=== PATIENT | male | born 1980 | race Caucasian/White ===

== ENCOUNTER 2022-07-01 11:11 | Emergency (ER) | payer MEDICAID ==
[~2022-07-01] VITALS: Ht 175.3 cm; Wt 90.9 kg
[2022-07-01 11:15] VITALS: BP 140/85
[2022-07-01] MEDS ORDERED: IBUP-1986 PO (12:04)
[2022-07-01] MEDS ORDERED: AMOX500C2 PO (12:04)
== END 2022-07-01 12:17 | disposition home or self-care (01) ==
LOC: ER 11:13
DX: K08.89 Other specified disorders of teeth and supporting structures (principal); Z79.899 Other long term (current) drug therapy
CPT/HCPCS: 99283

== ENCOUNTER 2022-07-23 23:09 | Emergency (ER) | payer MEDICAID ==
[~2022-07-23] VITALS: Ht 175.3 cm; Wt 100.0 kg
[~2022-07-23 23:09] MED LIST: IBUP-1986 PO
[2022-07-23 23:52] LABS: BASOPHILS # (AUTO) 0.1 X10'3 (0-0.2); BASOPHILS % (AUTO) 0.3 % (0-1); EOSINOPHILS % (AUTO) 0 % (0-6); HEMOGLOBIN 13.8 g/dl (14.0-17.9); LYMPHOCYTES # (AUTO) 0.8 X10'3 (1.1-4.8); LYMPHOCYTES % (AUTO) 3.6 % (21-51); MEAN CORPUSCULAR HEMOGLOBIN 29.4 PG (27.0-31.0); MEAN CORPUSCULAR HGB CONC 33.6 g/dL (33.0-36.5); MEAN CORPUSCULAR VOLUME 87.3 FL (78-98); MEAN PLATELET VOLUME 8.1 FL (7.4-10.4); MONOCYTES # (AUTO) 1.1 X10'3 (0-0.9); MONOCYTES % (AUTO) 4.9 % (2-12); NEUTROPHILS # (AUTO) 19.7 X10'3 (1.8-7.7); NEUTROPHILS % (AUTO) 91.2 % (42-75); PLATELET COUNT 358 X10'3 (140-440); RED BLOOD COUNT 4.69 X10'6 (4.70-6.10); RED CELL DISTRIBUTION WIDTH 13.7 % (11.5-14.5); WHITE BLOOD COUNT 21.5 X10'3 (4.5-11.0)
[2022-07-24 00:12] LABS: ALANINE AMINOTRANSFERASE 22 U/L (12-78); ALBUMIN 3.9 G/DL (3.4-5.0); ALBUMIN/GLOBULIN RATIO 1.1 (1.1-1.5); ALKALINE PHOSPHATASE 99 IU/L (46-116); ANION GAP 11 (8-16); ASPARTATE AMINO TRANSFERASE 20 U/L (10-37); BILIRUBIN,TOTAL 0.7 MG/DL (0.1-1.0); BLOOD UREA NITROGEN 11 MG/DL (7-18); BUN/CREATININE RATIO 12.8 (5.4-32.0); CHLORIDE 101 MMOL/L (99-107); CREATININE 0.86 MG/DL (0.60-1.10); GLUCOSE 110 MG/DL (70-104); SODIUM 138 MMOL/L (135-145); TOTAL CARBON DIOXIDE 25.7 MMOL/L (24-32); TOTAL PROTEIN 7.3 G/DL (6.4-8.2); eGFR > 90 ML/MIN
[2022-07-24 00:17] LABS: ACETAMINOPHEN < 2.0 UG/ML (10-30); ETHANOL < 0.010 GM/DL (0.0-0.010); POTASSIUM 2.9 MMOL/L (3.5-5.1)
[2022-07-24] MEDS ORDERED: POTASSIUM BICARB 20meq eff tab 20 MEQ TABLET.EFF PO ONE (00:50)
[2022-07-24 03:20] LABS: PLATELET ESTIMATE NORMAL; TOTAL CELLS COUNTED 100
--- NOTE | 2022-07-24 03:41 | NUR ---
Pt sleeping with even resp, no s/sx of discomfort or distress
--- NOTE | 2022-07-24 06:30 | NUR ---
Pt. woken up and transferred to ER OF bed 24. Pt. cooperative with transfer.
--- NOTE | 2022-07-24 07:00 | NUR ---
Pt. asleep on right side. respirations even and unlabored at 20.
--- NOTE | 2022-07-24 07:18 | NUR ---
TECH INVENTORIED PT 5 BAGS OF BELONGINGS, VALUABLES PLACED IN REGISTRATION SAFE INCLUDING WALLET AND PHONE, ALL OTHER BELONGINGS PLACED IN RM 27 FOR SAFE KEEPING.
--- NOTE | 2022-07-24 08:08 | NUR ---
urine sent to lab for UA and UDS.
--- NOTE | 2022-07-24 08:25 | NUR ---
Pt. awake and eating breakfast at bedside.
[2022-07-24 08:34] LABS: CLARITY,URINE SLIGHTLY CLOUDY (Clear); COLOR,URINE YELLOW (Yellow); GLUCOSE, URINE NEGATIVE (Neg); KETONES,URINE 40 mg/dl (Neg); LEUKOCYTE ESTERASE ,URINE NEGATIVE (Neg); NITRITES, URINE NEGATIVE (Neg); OCCULT BLOOD,URINE NEGATIVE (Neg); PH,URINE 6.5 (4.8-8.0); PROTEIN,URINE NEGATIVE (Neg)
[2022-07-24 08:47] LABS: URINE AMPHETAMINE SCREEN POSITIVE (Neg); URINE BARBITUATE SCREEN NEGATIVE (Neg); URINE BENZODIAZEPINES SCREEN NEGATIVE (Neg); URINE CANNABINOID SCREEN POSITIVE (Neg); URINE COCAINE SCREEN NEGATIVE (Neg); URINE METHADONE SCREEN NEGATIVE (Neg); URINE OPIATE SCREEN NEGATIVE (Neg); URINE PHENCYCLIDINE SCREEN NEGATIVE (Neg)
[2022-07-24 08:53] LABS: UA COLLECTION TYPE NON-SPECIFIED
[2022-07-24 08:56] LABS: BACTERIA,URINE FEW /HPF (Neg); MUCUS STRANDS MANY /LPF (Neg); RBC,URINE NONE SEEN /HPF (0-2); SQUAMOUS EPITHELIAL CELL,UR FEW /LPF (FEW)
--- NOTE | 2022-07-24 10:00 | NUR ---
Pt. asleep in bed on left side. Respiration even and unlabored at 16 BPM.
[2022-07-24] MEDS ORDERED: NO HOME MEDS (11:56)
--- NOTE | 2022-07-24 12:00 | NUR ---
Pt. awake and eating lunch in bed. 1:1 done at bedside. Pt. report SI with plan to jump off a bridge or OD on medications. Pt. reports previous suicide attempt "a long time ago", pt. had attempted to slit his wrists. Pt. denies HI, A/V hallucinations.
[2022-07-24 13:12] LABS: POTASSIUM 3.5 MMOL/L (3.5-5.1)
--- NOTE | 2022-07-24 13:15 | NUR ---
tech faxed pt packet to [facility]
[2022-07-24 18:58] LABS: BASOPHILS # (AUTO) 0.1 X10'3 (0-0.2); BASOPHILS % (AUTO) 0.5 % (0-1); EOSINOPHILS # (AUTO) 0.1 X10'3 (0-0.9); EOSINOPHILS % (AUTO) 0.4 % (0-6); HEMATOCRIT 40.8 % (42.0-52.0); HEMOGLOBIN 13.6 g/dl (14.0-17.9); LYMPHOCYTES # (AUTO) 2.3 X10'3 (1.1-4.8); LYMPHOCYTES % (AUTO) 12.5 % (21-51); MEAN CORPUSCULAR HEMOGLOBIN 29.3 PG (27.0-31.0); MEAN CORPUSCULAR HGB CONC 33.4 g/dL (33.0-36.5); MEAN CORPUSCULAR VOLUME 87.8 FL (78-98); MEAN PLATELET VOLUME 8.3 FL (7.4-10.4); MONOCYTES # (AUTO) 1.1 X10'3 (0-0.9); MONOCYTES % (AUTO) 5.7 % (2-12); NEUTROPHILS # (AUTO) 15.2 X10'3 (1.8-7.7); NEUTROPHILS % (AUTO) 80.9 % (42-75); PLATELET COUNT 326 X10'3 (140-440); RED BLOOD COUNT 4.64 X10'6 (4.70-6.10); RED CELL DISTRIBUTION WIDTH 13.9 % (11.5-14.5); WHITE BLOOD COUNT 18.8 X10'3 (4.5-11.0)
--- NOTE | 2022-07-24 19:13 | NUR ---
The patient appears to be sleeping
--- NOTE | 2022-07-24 19:21 | NUR ---
Labs faxed to [facility] and [facility]
[2022-07-24 20:52] VITALS: BP 123/66
== END 2022-07-24 20:56 ==
LOC: ER 23:10
DX: R45.851 Suicidal ideations (principal); Z20.822 Contact with and (suspected) exposure to COVID-19; F17.200 Nicotine dependence, unspecified, uncomplicated; F12.90 Cannabis use, unspecified, uncomplicated; F15.90 Other stimulant use, unspecified, uncomplicated; F11.90 Opioid use, unspecified, uncomplicated; Z72.89 Other problems related to lifestyle; Z60.2 Problems related to living alone; Z59.00 Homelessness unspecified; Z79.899 Other long term (current) drug therapy
CPT/HCPCS: 36415; 80053; 80305; 80320; 80329; 81001; 84132; 84145; 84443; 85007; 85025; 87088; 87811; 99285

== ENCOUNTER 2023-04-20 22:28 | Inpatient (IN) | payer MEDICAID ==
[~2023-04-20] VITALS: Ht 175.3 cm; Wt 90.2 kg
[~2023-04-20 22:28] MED LIST changes: +NO HOME MEDS
[2023-04-20 22:52] LABS: BILIRUBIN,URINE NEGATIVE (Neg); CLARITY,URINE CLOUDY (Clear); COLOR,URINE YELLOW (Yellow); GLUCOSE, URINE NEGATIVE (Neg); KETONES,URINE NEGATIVE (Neg); LEUKOCYTE ESTERASE ,URINE NEGATIVE (Neg); NITRITES, URINE NEGATIVE (Neg); OCCULT BLOOD,URINE NEGATIVE (Neg); PROTEIN,URINE NEGATIVE (Neg)
[2023-04-20 22:53] LABS: BASOPHILS # (AUTO) 0.1 X10'3 (0-0.2); BASOPHILS % (AUTO) 1.4 % (0-1); EOSINOPHILS # (AUTO) 0.1 X10'3 (0-0.9); EOSINOPHILS % (AUTO) 1.1 % (0-6); HEMATOCRIT 43.4 % (42.0-52.0); HEMOGLOBIN 14.8 g/dl (14.0-17.9); LYMPHOCYTES # (AUTO) 2.8 X10'3 (1.1-4.8); LYMPHOCYTES % (AUTO) 38.7 % (21-51); MEAN CORPUSCULAR HEMOGLOBIN 30.1 PG (27.0-31.0); MEAN CORPUSCULAR HGB CONC 34.1 g/dL (33.0-36.5); MEAN CORPUSCULAR VOLUME 88.4 FL (78-98); MEAN PLATELET VOLUME 9.1 FL (7.4-10.4); MONOCYTES # (AUTO) 0.7 X10'3 (0-0.9); NEUTROPHILS # (AUTO) 3.6 X10'3 (1.8-7.7); NEUTROPHILS % (AUTO) 49.8 % (42-75); PLATELET COUNT 385 X10'3 (140-440); RED BLOOD COUNT 4.91 X10'6 (4.70-6.10); RED CELL DISTRIBUTION WIDTH 13.2 % (11.5-14.5); WHITE BLOOD COUNT 7.2 X10'3 (4.5-11.0)
[2023-04-20 22:56] LABS: UA COLLECTION TYPE CLN CATCH MIDSTREAM
[2023-04-20 22:57] LABS: HYALINE CASTS 0-3 /LPF (NEGATIVE); MUCUS STRANDS MANY /LPF (Neg); SQUAMOUS EPITHELIAL CELL,UR FEW /LPF (FEW)
[2023-04-20 22:58] LABS: AMORPHOUS URATES 2+; BACTERIA,URINE FEW /HPF (Neg); CAL OXALATE CRYSTALS 1+ /HPF (NEGATIVE)
[2023-04-20 22:59] LABS: TRANSITIONAL EPI CELLS,URINE FEW /HPF; WBC,URINE 0-4 /HPF (0-4)
[2023-04-20 23:03] LABS: URINE AMPHETAMINE SCREEN POSITIVE (Neg); URINE BARBITUATE SCREEN NEGATIVE (Neg); URINE BENZODIAZEPINES SCREEN NEGATIVE (Neg); URINE CANNABINOID SCREEN POSITIVE (Neg); URINE COCAINE SCREEN NEGATIVE (Neg); URINE METHADONE SCREEN NEGATIVE (Neg); URINE OPIATE SCREEN NEGATIVE (Neg); URINE PHENCYCLIDINE SCREEN NEGATIVE (Neg)
[2023-04-20 23:05] LABS: ALANINE AMINOTRANSFERASE 27 U/L (12-78); ALBUMIN 3.7 G/DL (3.4-5.0); ALBUMIN/GLOBULIN RATIO 1.2 (1.1-1.5); ALKALINE PHOSPHATASE 79 IU/L (46-116); ANION GAP 9 (8-16); ASPARTATE AMINO TRANSFERASE 28 U/L (10-37); BILIRUBIN,TOTAL 0.4 MG/DL (0.1-1.0); BLOOD UREA NITROGEN 5 MG/DL (7-18); BUN/CREATININE RATIO 5.3 (10.0-20.0); CALCIUM 9.1 MG/DL (8.5-10.1); CHLORIDE 104 MMOL/L (99-107); CREATININE 0.94 MG/DL (0.60-1.10); GLUCOSE 128 MG/DL (70-104); SODIUM 141 MMOL/L (135-145); TOTAL PROTEIN 6.8 G/DL (6.4-8.2); eCRCL 103 ML/MIN; eGFR 88 ML/MIN
[2023-04-20 23:15] LABS: ETHANOL < 10 MG/DL (<10); THYROID STIMULATING HORMONE 1.23 ulU/ml (0.34-4.50)
--- NOTE | 2023-04-20 23:50 | NUR ---
Client arrived at 23:50, in a wheelchair, accompanied by maintenance supervisor mechanical and RN. Client ambulated to restroom and changed into green scrubs. He was cooperative. Mood and affect are depressed. Client reports feelings of hopelessness and worthlessness. Reports plan to "slit wrists". Three prior attempts starting at a "young age". Hx of cutting wrist. Per client "cuts were superficial". He stated [facility] Client did not state why. Belongings were secured by the maintenance supervisor mechanical. Client was given milk and a sandwich. Fell asleep w/o difficulty.
[2023-04-21] MEDS ORDERED: potassium Cl 20 mEq SR tablet PO STA (00:25)
--- NOTE | 2023-04-21 02:05 | NUR ---
Sleeping on right side. Resp even and unlabored.
--- NOTE | 2023-04-21 04:30 | NUR ---
Sleeping on right side. Resp even and unlabored.
--- NOTE | 2023-04-21 06:49 | NUR ---
Patient with snoring respirations. No distress noted on exam. Plan of care ongoing.
--- NOTE | 2023-04-21 08:32 | NUR ---
Rashaun CARTY, evaluating patient. No distress noted on exam. Plan of care ongoing.
[2023-04-21] MEDS: potassium Cl 20 mEq SR tablet PO SCH ×2 (08:54→20:30)
--- NOTE | 2023-04-21 09:12 | NUR ---
Selvin CARTY evaluating patient. Patient eating breakfast during eval. No distress observed. Continue to monitor.
--- NOTE | 2023-04-21 10:13 | NUR ---
Patient was placed on a 5150. Patient is not sleeping. Respirations equal and nonlabored. Continue with patient plan of care.
--- NOTE | 2023-04-21 12:09 | NUR ---
Patient with snoring respirations. Patient's lunch at bedside table. No distress observed. Continue with patient plan of care.
--- NOTE | 2023-04-21 13:42 | NUR ---
Patient laying on his left side. Respirations are nonlabored and quiet. No distress observed during evaluation. Continue with patient plan of care.
--- NOTE | 2023-04-21 15:13 | NUR ---
Patient with snoring respirations. No distress observed during eval.
--- NOTE | 2023-04-21 16:00 | NUR ---
Admission Note: Pt. was admitted to the unit from the Emergency Room in a wheelchair on a 5150 for DTS. Per 5150: You have stated you were going to "[employer] to purchase a razor blade and slit my wrists." Pt. scores as a high risk on the [place] Suicide Risk Assessment, however he is able to contract for safety while on the unit. This was endorsed to Dr. Garcia and Q 15min safety checks were ordered. Pt. reports a history of asthma, depression, Bipolar D/O, and substance abuse. He has an ankle monitor present on his left ankle. Pt. is currently homeless and endorses a very limited support system.
[2023-04-21 16:38] VITALS: BP 123/90; PULSE 76; RESP 16; TEMP 98.1; O2SAT 96
[2023-04-21] MEDS ORDERED: loperamide 2mg capsule PO PRN (16:50)
[2023-04-21] MEDS ORDERED: magnesium hydroxide 30ml (MOM) UD suspension PO PRN (16:50)
[2023-04-21] MEDS ORDERED: acetaminophen 325mg tablet PO PRN (16:50)
[2023-04-21] MEDS ORDERED: mag hydrox/Alum hydrox/simeth 30ml oral suspension PO PRN (16:50)
[2023-04-21 16:52] VITALS: RESP 16; O2SAT 96
[2023-04-21] MEDS ORDERED: NO HOME MEDS (17:32)
[2023-04-21 19:38] VITALS: RESP 16; O2SAT 96
[2023-04-21 19:43] VITALS: BP 123/90; PULSE 76; RESP 16; TEMP 98.1; O2SAT 96
[2023-04-21] MEDS: NICOTINE POLACRILEX 2 MG LOZENGE BC PRN (20:30)
--- NOTE | 2023-04-21 21:08 | NUR ---
Nursing Progress Note: Problem:Pt. was admitted to the unit from the Emergency Room in a wheelchair on a 5150 for DTS. Per 5150: You have stated you were going to "[employer] to purchase a razor blade and slit my wrists." Pt. scores as a high risk on the [place] Suicide Risk Assessment, however he is able to contract for safety while on the unit. This was endorsed to Dr. Garcia and Q 15min safety checks were ordered. Pt. reports a history of asthma, depression, Bipolar D/O, and substance abuse. He has an ankle monitor present on his left ankle. Pt. is currently homeless and endorses a very limited support system. Interventions: Introduced self and established rapport, maintained a safe and supportive environment, provided clear and simple instructions, attempted to orient to reality, monitored anxiety and need for intervention, provided active listening and positive encouragement, and maintained Q 15min safety checks. Response: Pt is in bed napping at change of shift. Pt completed inventory with staff and had snacks. Pt states he has an ankle bracelet for a 290 offense. Pt reports he is here for s/i but currently has no SI thoughts. Pt states he has not been taking any medications. Pt charged his ankle monitor, reports he has no needs at this time. Pt took scheduled med and PRN nicotine lozenge before going to sleep. Plan Pt. continues to require medication adjustments and a safe and supportive environment.
[2023-04-22 07:00] VITALS: RESP 16; O2SAT 97
[2023-04-22 07:36] LABS: THYROID STIMULATING HORMONE 1.18 ulU/ml (0.34-4.50)
[2023-04-22 08:00] VITALS: BP 128/85; PULSE 76; RESP 16; TEMP 98; O2SAT 97
[2023-04-22] MEDS ORDERED: magnesium Cl slow-release 64mg tablet PO PRN (08:40)
[2023-04-22] MEDS ORDERED: potassium Cl 20 mEq SR tablet PO PRN ×2 (08:40)
--- NOTE | 2023-04-22 09:21 | NUR ---
Malnutrition Consult "15 pounds lost past month": Pt admit w/ SI for 2 days RN CONCURRENT REVIEW per EMR. Pt w/ no prior scaled wt hx, no edema/wounds, normal strength, current scaled wt appropriate, and PO 100% first regular diet meal w/ snack per EMR. Pt lacks minimum malnutrition criteria at this time. Addendum: 04/22/23 at [address] Amended: Links added.
[2023-04-22 12:24] LABS: POTASSIUM 3.9 MMOL/L (3.5-5.1)
--- NOTE | 2023-04-22 13:38 | NUR ---
PSYCHOSOCIAL ASSESSMENT Met with Pt. today. Pt is on a 5150 for DTS. Per 5150: You have stated you were going to "[employer] to purchase a razor blade and slit my wrists." Pt. reports a history of asthma, depression, Bipolar D/O, and substance abuse. He has an ankle monitor present on his left ankle. Pt. is currently homeless (for the past 2 years) and endorses a very limited support system. Pt. has a security control room officer, Ngozi. He reported that he works at [employer] and has no other income other than that. He reported he was in [employer] 7-8 months ago. He reported he has been diagnosed with Bipolar D/O. He reported that he has recently relapsed on meth and he continues to use marijuana. He denied using alcohol. Pts family live in [place]. He reported outpt. Mental health services through the [place] office but denies being on medications recently through them. Pt has a hard time finding housing/rehabs as he has 290 status. Pt is interested in the [facility] program when he is medically cleared to discharge. This [facility] will call to see if they have any bed availability at this time. MSE: Pt was laying in his bed, he was calm, compliant and pleasant in his demeanor. His appearance was disheveled and his hygiene was fair. His thought content and process appeared WNL. He was alert and oriented X 4. Nunu Glez LCSW
[2023-04-22] MEDS ORDERED: cloNIDine 0.1 mg tablet PO PRN (14:30)
[2023-04-22] MEDS: ziprasidone 20mg capsule PO SCH ×2 (15:10→20:51)
[2023-04-22] MEDS: sertraline 50mg tablet PO SCH (15:10)
--- NOTE | 2023-04-22 15:15 | NUR ---
Nursing Progress Note: Problem : Pt. was admitted to the unit from the Emergency Room in a wheelchair on a 5150 for DTS. Per 5150: You have stated you were going to "[employer] to purchase a razor blade and slit my wrists." Pt. scores as a high risk on the [place] Suicide Risk Assessment, however he is able to contract for safety while on the unit. This was endorsed to Dr. Garcia and Q 15min safety checks were ordered. Pt. reports a history of asthma, depression, Bipolar D/O, and substance abuse. He has an ankle monitor present on his left ankle. Pt. is currently homeless and endorses a very limited support system. Interventions : Maintained a safe and supportive environment, ensured contract for safety, provided clear and simple instructions, provided active listening and positive encouragement, and maintained Q 15min safety checks. Response : Received pt. sleeping in bed at the beginning of the shift, he was awoken to attend breakfast in the Group Room and afterwards retreated back to bed where he isolated napping intermittently during the shift. 1:1 was completed at bedside, pt. presents as cooperative, fatigued, and is guarded with conversation. He responds minimally to direct questions only. Pt. denies any S/I, however endorses ongoing depression. When questioned further regarding the cause for his depression, pt. states, "My life." Pt. denies any A/V/LANDERS and no delusional statements were made. Pt's order for scheduled potassium replacement was discontinued per SOHAM Whelan and an order for a potassium blood level was obtained. Pt's potassium is currently WNL, and he will receive daily lab draws to monitor potassium and magnesium levels, any needed replacement will be per ordered protocol. Plan : Pt. requires interruption of current crisis, medication adjustments, and a safe and supportive environment.
[2023-04-22 19:00] VITALS: RESP 16; O2SAT 86
[2023-04-22] MEDS ORDERED: albuterol 2.5 MG/3 ML nebule NEB ONE (19:05)
[2023-04-22 20:00] VITALS: BP 127/86; PULSE 72; RESP 16; TEMP 97.5; O2SAT 97
[2023-04-22] MEDS: K and/or MAG REPLACEMENT MC SCH (20:00)
[2023-04-22] MEDS: prazosin 1mg capsule PO PRN (20:51)
[2023-04-22 20:57] VITALS: PULSE 74; RESP 16; O2SAT 96
--- NOTE | 2023-04-23 05:08 | NUR ---
Nursing Progress Note: Lorenzo Problem: Pt. was admitted to the unit from the Emergency Room in a wheelchair on a 5150 for DTS. Per 5150: You have stated you were going to "[employer] to purchase a razor blade and slit my wrists." Pt. scores as a high risk on the [place] Suicide Risk Assessment, however he is able to contract for safety while on the unit. This was endorsed to Dr. Garcia and Q 15min safety checks were ordered. Pt. reports a history of asthma, depression, Bipolar D/O, and substance abuse. He has an ankle monitor present on his left ankle. Pt. is currently homeless and endorses a very limited support system. Interventions: Maintained a safe and supportive environment, administer/educate/monitor medications, ensured contract for safety, provided clear and simple instructions, provided active listening and positive encouragement, and maintained Q 15min safety checks. Response: Patient received in his room, he is sleeping with even and unlabored RR. Pt woke up about 1930. RT here to offer a nebulizer treatment but pt. declined needing one. Lungs have some wheezes but pt. stated this is normal. Pt denies SI/HI/AVH. Pt is fatigued and guarded. Pt is calm and cooperative with assessment. Pt is still paranoid relating to this teletypewriter installer that certain people have hacked his phone and know his 290 status. Pt does appear depressed and giving only minimal answers to questions. Pt is medication compliant tonight. Monitor for safety. Plan: Pt. requires interruption of current crisis, medication adjustments, and a safe and supportive environment.
[2023-04-23 07:00] VITALS: RESP 16; O2SAT 94
[2023-04-23 07:27] LABS: MAGNESIUM 2.2 MG/DL (1.5-2.4); POTASSIUM 3.6 MMOL/L (3.5-5.1)
[2023-04-23 08:00] VITALS: BP 134/88; PULSE 59; RESP 16; TEMP 97.9; O2SAT 94
[2023-04-23] MEDS: lamoTRIgine 25mg tablet PO SCH (08:12)
[2023-04-23] MEDS: ziprasidone 20mg capsule PO SCH ×2 (08:12→21:51)
[2023-04-23] MEDS: sertraline 50mg tablet PO SCH (08:12)
[2023-04-23] MEDS: K and/or MAG REPLACEMENT MC SCH ×2 (08:15→20:00)
[2023-04-23 09:23] VITALS: PULSE 90; RESP 16; O2SAT 97
--- NOTE | 2023-04-23 13:13 | NUR ---
CASE MANAGEMENT Placed a call to [facility], Clotilde reported that she is familiar with Pt. She does not have a bed for him this week but may have one opening up next week. Will follow up as needed. Nunu Glez, TYPING ELEMENT MACHINE OPERATOR
--- NOTE | 2023-04-23 14:20 | NUR ---
Nursing Progress Note: Problem : Pt. was admitted to the unit from the Emergency Room in a wheelchair on a 5150 for DTS. Per 5150: You have stated you were going to "[employer] to purchase a razor blade and slit my wrists." Pt. scores as a high risk on the [place] Suicide Risk Assessment, however he is able to contract for safety while on the unit. This was endorsed to Dr. Garcia and Q 15min safety checks were ordered. Pt. reports a history of asthma, depression, Bipolar D/O, and substance abuse. He has an ankle monitor present on his left ankle. Pt. is currently homeless and endorses a very limited support system. Interventions : Maintained a safe and supportive environment, ensured contract for safety, provided clear and simple instructions, provided active listening and positive encouragement, encouraged participation on the unit, and maintained Q 15min safety checks. Response : Received pt. sleeping in bed at the beginning of the shift, he was awoken to attend breakfast in the Group Room and afterwards retreated back to bed as is his routine. 1:1 was completed at bedside, pt. continues to present as guarded with conversation and makes minimal eye contact. He again responds minimally to direct questions only. Pt. continues to deny any S/I and appears to be minimizing any mental health s/s, he states, "I'm okay." He does endorse some ongoing depression upon questioning by this contract technical writer, but will not elaborate on this. Pt. remains withdrawn from others and naps intermittently throughout the shift. Pt's potassium and magnesium labs were obtained and were WNL, no replacement was required per protocol. Plan : Pt. requires interruption of current crisis, medication adjustments, and a safe and supportive environment.
[2023-04-23 14:30] LABS: HBSAG SCREEN Negative (Negative); HEP B CORE AB, IGM Negative (Negative); HEP B CORE AB, TOT Positive (Negative)
--- NOTE | 2023-04-23 17:41 | NUR ---
Hepatitis B screening: Dr Carrera made aware of pt positive Hep B screening. states we dont normally do anything about this and no isolation needed.
[2023-04-23 19:00] VITALS: RESP 16; O2SAT 100
--- NOTE | 2023-04-23 19:18 | NUR ---
Nursing Progress Note: Problem : Pt. was admitted to the unit from the Emergency Room in a wheelchair on a 5150 for DTS. Per 5150: You have stated you were going to "[employer] to purchase a razor blade and slit my wrists." Pt. scores as a high risk on the [place] Suicide Risk Assessment, however he is able to contract for safety while on the unit. This was endorsed to Dr. Garcia and Q 15min safety checks were ordered. Pt. reports a history of asthma, depression, Bipolar D/O, and substance abuse. He has an ankle monitor present on his left ankle. Pt. is currently homeless and endorses a very limited support system. Interventions : Maintained a safe and supportive environment, ensured contract for safety, provided clear and simple instructions, provided active listening and positive encouragement, encouraged participation on the unit, and maintained Q 15min safety checks. Response: Patient was out of his room for a short time following shift change. He then isolated in his room. 1:1 Interview at bedside. Patient exhibits a flat affect. He tells this data analyst report writer that he feels suicidal, he does not have a plan. He denies hallucinations. The patient states he feels depressed. He does make direct eye contact. He had a normal BM today. Patient is cooperative. The patient states he is trying not to think about things, he wants to sleep. Plan : Pt. requires interruption of current crisis, medication adjustments, and a safe and supportive environment.
[2023-04-23 20:00] VITALS: BP 146/97; PULSE 60; RESP 16; TEMP 97.3; O2SAT 100
[2023-04-23] MEDS: prazosin 1mg capsule PO PRN (21:51)
[2023-04-24 07:30] VITALS: RESP 14; O2SAT 99
[2023-04-24 08:00] VITALS: BP 133/94; PULSE 69; RESP 14; TEMP 98.6; O2SAT 99
[2023-04-24] MEDS: K and/or MAG REPLACEMENT MC SCH ×2 (08:00→20:00)
[2023-04-24] MEDS: sertraline 50mg tablet PO SCH (08:13)
[2023-04-24] MEDS: lamoTRIgine 25mg tablet PO SCH (08:13)
[2023-04-24] MEDS: ziprasidone 20mg capsule PO SCH ×2 (08:14→20:26)
[2023-04-24 11:08] LABS: MAGNESIUM 2.4 MG/DL (1.5-2.4); POTASSIUM 4.3 MMOL/L (3.5-5.1)
[2023-04-24 15:33] VITALS: PULSE 76; RESP 16; O2SAT 99
--- NOTE | 2023-04-24 17:41 | NUR ---
Nursing Progress Note: Problem : Per 5150: You have stated you were going to "[employer] to purchase a razor blade and slit my wrists." Pt. scores as a high risk on the [place] Suicide Risk Assessment, however he is able to contract for safety while on the unit. This was endorsed to Dr. Garcia and Q 15min safety checks were ordered. Pt. reports a history of asthma, depression, Bipolar D/O, and substance abuse. He has an ankle monitor present on his left ankle. Pt. is currently homeless and endorses a very limited support system. Interventions : Maintained a safe and supportive environment, ensured contract for safety, provided clear and simple instructions, provided active listening and positive encouragement, encouraged participation on the unit, and maintained Q 15min safety checks. Response : Pt. asleep in bed at start of shift. Pt. awoke for breakfast and took all medication and went back to his room. 1:1 done at bedside, pt. reports feeling depression and SI without a plan. Pt. gives minimal answers to RNs questions. Pt. denies HI, A/V hallucinations. Pt. is socially withdrawn and isolates to his room most of the day. Pt's potassium and magnesium labs were obtained and were WNL, no replacement was required per protocol. Plan : Pt. requires interruption of current crisis, medication adjustments, and a safe and supportive environment.
[2023-04-24 19:00] VITALS: RESP 16; O2SAT 98
[2023-04-24 20:00] VITALS: BP 131/85; PULSE 75; RESP 16; TEMP 96.8; O2SAT 98
[2023-04-24] MEDS: prazosin 1mg capsule PO PRN (20:26)
--- NOTE | 2023-04-25 05:29 | NUR ---
Nursing Progress Note: Problem: Per 5150: You have stated you were going to "[employer] to purchase a razor blade and slit my wrists." Pt. scores as a high risk on the [place] Suicide Risk Assessment, however he is able to contract for safety while on the unit. This was endorsed to Dr. Garcia and Q 15min safety checks were ordered. Pt. reports a history of asthma, depression, Bipolar D/O, and substance abuse. He has an ankle monitor present on his left ankle. Pt. is currently homeless and endorses a very limited support system. Interventions: Maintained a safe and supportive environment, ensured contract for safety, provided clear and simple instructions, provided active listening and positive encouragement, encouraged participation on the unit, and maintained Q 15min safety checks. Response: Pt received in bed. Pt is awake and participated in 1:1. Pt is calm and cooperative. Pt stated he is very depressed, he has a flat affect. Pt spends most of his time in bed. Little interaction with peers. Pt stated he still has suicidal thoughts but no plan. Pt denies HI/AVH. Im anxious about being discharged and going back out into the world. Pt is homeless. Pt was placed on a 5250 today and is okay with staying here longer. Pt is medication compliant and took Prazosin for his nightmares. Monitor for safety. Plan: Pt. requires interruption of current crisis, medication adjustments, and a safe and supportive environment.
[2023-04-25 07:00] VITALS: RESP 16; O2SAT 97
[2023-04-25] MEDS: ziprasidone 20mg capsule PO SCH ×2 (07:40→20:12)
[2023-04-25] MEDS: sertraline 25mg tablet PO SCH (07:40)
[2023-04-25] MEDS: lamoTRIgine 25mg tablet PO SCH (07:40)
[2023-04-25 08:00] VITALS: BP 125/89; PULSE 70; RESP 16; TEMP 97.3; O2SAT 97
[2023-04-25] MEDS: K and/or MAG REPLACEMENT MC SCH (08:00)
[2023-04-25 09:18] VITALS: PULSE 74; RESP 16; O2SAT 97
--- NOTE | 2023-04-25 11:29 | NUR ---
Initial: Pt admit for SI. Currently on a regular diet and eating well overall, documented with average 84% PO intake since admit meeting 94% estimated energy needs and 100% estimated protein needs. LBM 04/24 per EMR. No nutrition intervention implemented at this time. Will continue to follow and make recommendations as appropriate. Recommendations: 1) Continue regular diet 2) Bowel care PRN 3) Weekly scaled weights Addendum: 04/25/23 at [address] Amended: Links added.
[2023-04-25] MEDS: NICOTINE POLACRILEX 2 MG LOZENGE BC PRN (12:15)
[2023-04-25 14:40] LABS: MAGNESIUM 2.5 MG/DL (1.5-2.4); POTASSIUM 4.7 MMOL/L (3.5-5.1)
--- NOTE | 2023-04-25 16:14 | NUR ---
Nursing Progress Note: Problem : Pt. was admitted to the unit from the Emergency Room in a wheelchair on a 5150 for DTS. Per 5150: You have stated you were going to "[employer] to purchase a razor blade and slit my wrists." Pt. scores as a high risk on the [place] Suicide Risk Assessment, however he is able to contract for safety while on the unit. This was endorsed to Dr. Garcia and Q 15min safety checks were ordered. Pt. reports a history of asthma, depression, Bipolar D/O, and substance abuse. He has an ankle monitor present on his left ankle. Pt. is currently homeless and endorses a very limited support system. Interventions : Maintained a safe and supportive environment, ensured contract for safety, provided clear and simple instructions, provided active listening and positive encouragement, encouraged participation on the unit, and maintained Q 15min safety checks. Response: Nurse received pt. asleep at change of shift, pt. was awoke by this nurse for AM medications. Medications administered with no issues. 1:1 done at bedside. Pt denying SI stating, not today. Pt denies AH/VH but endorses feelings of paranoia and believing people are out to get him. Pt states he feels like his depression is getting better and his mood is pretty good. Pt. requested a nicotine lozenge but was unable to stomach it and spit it out. Pt attended meals in the community room and was seen outside his room on and off throughout the shift. Pt potassium and magnesium lab draws and replacement orders have been discontinued per PA. Plan : Pt. requires interruption of current crisis, medication adjustments, and a safe and supportive environment.
[2023-04-25] MEDS: acetaminophen 325mg tablet PO PRN ×2 (17:03→21:30)
[2023-04-25 19:00] VITALS: RESP 18; O2SAT 98
[2023-04-25] MEDS: prazosin 1mg capsule PO PRN (20:12)
[2023-04-25 20:32] VITALS: BP 145/89; PULSE 56; RESP 18; TEMP 97.2; O2SAT 98
--- NOTE | 2023-04-25 21:50 | NUR ---
Nursing Progress Note: Problem : Pt. was admitted to the unit from the Emergency Room in a wheelchair on a 5150 for DTS. Per 5150: You have stated you were going to "[employer] to purchase a razor blade and slit my wrists." Pt. scores as a high risk on the [place] Suicide Risk Assessment, however he is able to contract for safety while on the unit. This was endorsed to Dr. Garcia and Q 15min safety checks were ordered. Pt. reports a history of asthma, depression, Bipolar D/O, and substance abuse. He has an ankle monitor present on his left ankle. Pt. is currently homeless and endorses a very limited support system. Interventions : Maintained a safe and supportive environment, ensured contract for safety, provided clear and simple instructions, provided active listening and positive encouragement, encouraged participation on the unit, and maintained Q 15min safety checks. Response:This patient is awake and laying in his bed following shift change. 1:1 interview at bedside. This patient is well oriented and cooperative. He speaks in a normal rate, rhythm, and tone. Patient makes direct eye contact. Patient tells this administrative underwriter that he "wonders if my paranoia is real." Patient states he has been out on the unit all day, socializing and watching television. Patient Denies S/I or H/I. This patient was medication compliant and cooperative. Plan : Pt. requires interruption of current crisis, medication adjustments, and a safe and supportive environment.
[2023-04-26 07:00] VITALS: RESP 16; O2SAT 99
[2023-04-26 08:00] VITALS: BP 140/92; PULSE 55; RESP 16; TEMP 97.6; O2SAT 99
[2023-04-26] MEDS: sertraline 25mg tablet PO SCH (08:07)
[2023-04-26] MEDS: lamoTRIgine 25mg tablet PO SCH (08:07)
[2023-04-26] MEDS: ziprasidone 20mg capsule PO SCH ×2 (08:07→20:06)
--- NOTE | 2023-04-26 17:34 | NUR ---
Nursing Progress Note: Abimael Problem : Pt. was admitted to the unit from the Emergency Room in a wheelchair on a 5150 for DTS. Per 5150: You have stated you were going to "[employer] to purchase a razor blade and slit my wrists." Pt. scores as a high risk on the [place] Suicide Risk Assessment, however he is able to contract for safety while on the unit. This was endorsed to Dr. Garcia and Q 15min safety checks were ordered. Pt. reports a history of asthma, depression, Bipolar D/O, and substance abuse. He has an ankle monitor present on his left ankle. Pt. is currently homeless and endorses a very limited support system. Interventions : Maintained a safe and supportive environment, ensured contract for safety, provided clear and simple instructions, provided active listening and positive encouragement, encouraged participation on the unit, and maintained Q 15min safety checks. Response: Received pt asleep. Pt ate meals in the community room and took all medications cooperatively. 1:1 performed at bedside. Pt denies SI/HI and AVH. Pt self-isolated this shift spending the day in his room except when he charged his ankle bracelet in the hallway. Pt pleasant and cooperative with staff. Plan : Pt. requires interruption of current crisis, medication adjustments, and a safe and supportive environment.
[2023-04-26] MEDS: acetaminophen 325mg tablet PO PRN (19:28)
[2023-04-26 19:45] VITALS: BP 115/79; PULSE 66; RESP 14; TEMP 98.1; O2SAT 96
[2023-04-26] MEDS: prazosin 1mg capsule PO PRN (20:05)
--- NOTE | 2023-04-26 23:08 | NUR ---
Nursing Progress Note: Abimael Problem : Pt. was admitted to the unit from the Emergency Room in a wheelchair on a 5150 for DTS. Per 5150: You have stated you were going to "[employer] to purchase a razor blade and slit my wrists." Pt. scores as a high risk on the [place] Suicide Risk Assessment, however he is able to contract for safety while on the unit. This was endorsed to Dr. Garcia and Q 15min safety checks were ordered. Pt. reports a history of asthma, depression, Bipolar D/O, and substance abuse. He has an ankle monitor present on his left ankle. Pt. is currently homeless and endorses a very limited support system. Interventions : Maintained a safe and supportive environment, ensured contract for safety, provided clear and simple instructions, provided active listening and positive encouragement, encouraged participation on the unit, and maintained Q 15min safety checks. Response: Received pt in dining room briefly watching TV with peers. Pt denies MH symptoms and states he is doing OK. Pt had good eye contact during interview. Pt charged his ankle bracelet in the hallway. He is pleasant and cooperative and medication compliant. Pt up for snack time and went to bed shortly after. Pt pleasant and cooperative with staff. Plan : Pt. requires interruption of current crisis, medication adjustments, and a safe and supportive environment.
[2023-04-27] VITALS (7 sets, daily range): BP systolic 121–124; BP diastolic 84–85; PULSE 62–84; RESP 16–19; TEMP 98–98.3; O2SAT 96–98
[2023-04-27] MEDS: lamoTRIgine 25mg tablet PO SCH (07:46)
[2023-04-27] MEDS: sertraline 25mg tablet PO SCH (07:46)
[2023-04-27] MEDS: ziprasidone 20mg capsule PO SCH ×2 (07:48→20:07)
[2023-04-27] MEDS ORDERED: ondansetron 4mg rapidly disintigrating tab PO PRN (11:35)
--- NOTE | 2023-04-27 13:52 | NUR ---
5250 upheld for DTS
--- NOTE | 2023-04-27 16:23 | NUR ---
Nursing Progress Note: Abimael Problem : Pt. was admitted to the unit from the Emergency Room in a wheelchair on a 5150 for DTS. Per 5150: You have stated you were going to "[employer] to purchase a razor blade and slit my wrists." Pt. scores as a high risk on the [place] Suicide Risk Assessment, however he is able to contract for safety while on the unit. This was endorsed to Dr. Garcia and Q 15min safety checks were ordered. Pt. reports a history of asthma, depression, Bipolar D/O, and substance abuse. He has an ankle monitor present on his left ankle. Pt. is currently homeless and endorses a very limited support system. Interventions : Maintained a safe and supportive environment, ensured contract for safety, provided clear and simple instructions, provided active listening and positive encouragement, encouraged participation on the unit, and maintained Q 15min safety checks. Response: Received pt asleep. Pt woke and charged his ankle bracelet in the hallway. Pt states I slept alright. Pt ate meals in the community room and took all medications cooperatively. 1:1 performed at bedside. Pt denies SI/HI and AVH. Pt self-isolated this shift spending most of the day in his room. Pt pleasant and cooperative with staff. Pt was nauseous today gave PRN Zofran with good effect. Pt states he feels like he is getting sick, stated Im tired and getting used to the meds they are giving me. Will continue to monitor, VS within normal limits. Pt observed interacting with peers, walking in the hallway, and watching tv in the community room later in the day. Plan : Pt. requires interruption of current crisis, medication adjustments, and a safe and supportive environment.
[2023-04-27] MEDS: prazosin 1mg capsule PO PRN ×2 (20:07→22:49)
[2023-04-27] MEDS: albuterol 2.5 MG/3 ML nebule NEB PRN (21:23)
--- NOTE | 2023-04-28 01:41 | NUR ---
Nursing Progress Note: Abimael Problem : Pt. was admitted to the unit from the Emergency Room in a wheelchair on a 5150 for DTS. Per 5150: You have stated you were going to "[employer] to purchase a razor blade and slit my wrists." Pt. scores as a high risk on the [place] Suicide Risk Assessment, however he is able to contract for safety while on the unit. This was endorsed to Dr. Garcia and Q 15min safety checks were ordered. Pt. reports a history of asthma, depression, Bipolar D/O, and substance abuse. He has an ankle monitor present on his left ankle. Pt. is currently homeless and endorses a very limited support system. Interventions : Maintained a safe and supportive environment, ensured contract for safety, provided clear and simple instructions, provided active listening and positive encouragement, encouraged participation on the unit, and maintained Q 15min safety checks. Response: Received pt. in the community room at change of shift. Pt. is pleasant and cooperative. Pt. is observed socializing with peers and watching TV. He is medication compliant. Pt. denies SI/HI/VH/AH. Pt. participated in evening snack. Pt. observed laying in bed reading before going to sleep. Plan : Pt. requires interruption of current crisis, medication adjustments, and a safe and supportive environment.
--- NOTE | 2023-04-28 04:45 | NUR ---
POLICY SERVICES REPRESENTATIVE documentation: I have reviewed and agree with all interventions, assessments performed and documented by Drake Vogel.
[2023-04-28 07:18] VITALS: BP 123/80; PULSE 91; RESP 16; TEMP 97.3; O2SAT 97
[2023-04-28] MEDS: sertraline 25mg tablet PO SCH (08:34)
[2023-04-28] MEDS: lamoTRIgine 25mg tablet PO SCH (08:34)
--- NOTE | 2023-04-28 09:01 | NUR ---
CASE MANAGEMENT This Film Librarian spoke with Clotilde at [facility] [place] who reported that she has no availability for Pt at this moment (due to his 290 status she has a more limited selection of beds to offer him) but she did report he continues to be on her waitlist. 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 She reported that he is good about making his appointments and going to classes etc though she did report he missed his last appointment in April with the Psychiatrist at [place]. She gave this Film Librarian Franny Mckeon's (Mental Health consulting manager at [place]) phone number to schedule a follow up appt with his Psychiatrist. Left her a message today. Will continue to follow as needed. Nunu Glez, KIRA
[2023-04-28] MEDS: ziprasidone 20mg capsule PO SCH ×2 (10:04→20:29)
--- NOTE | 2023-04-28 16:04 | NUR ---
Nursing Progress Note: Abimael Problem : Pt. was admitted to the unit from the Emergency Room in a wheelchair on a 5150 for DTS. Per 5150: You have stated you were going to "[employer] to purchase a razor blade and slit my wrists." Pt. scores as a high risk on the [place] Suicide Risk Assessment, however he is able to contract for safety while on the unit. This was endorsed to Dr. Garcia and Q 15min safety checks were ordered. Pt. reports a history of asthma, depression, Bipolar D/O, and substance abuse. He has an ankle monitor present on his left ankle. Pt. is currently homeless and endorses a very limited support system. Interventions : Maintained a safe and supportive environment, ensured contract for safety, provided clear and simple instructions, provided active listening and positive encouragement, encouraged participation on the unit, and maintained Q 15min safety checks. Response: Patient was asleep at change of shift and up for breakfast. RN spoke with patient in his room. Patient denies S/I, H/I, A/H and V/H. Patient does state that he is depressed. Patient is homeless and his [employer] is having difficulty finding patient housing. Patient feels hopeless and helpless. Patient stays in his room and in bed most of the day, laying in bed awake or asleep. Plan : Pt. requires interruption of current crisis, medication adjustments, and a safe and supportive environment.
[2023-04-28 19:00] VITALS: RESP 18; O2SAT 98
[2023-04-28 20:00] VITALS: BP 133/78; PULSE 65; RESP 18; TEMP 98.4; O2SAT 98
[2023-04-28 20:12] VITALS: PULSE 63; RESP 18; O2SAT 95
[2023-04-28 20:18] VITALS: PULSE 68; RESP 18
[2023-04-28] MEDS: prazosin 1mg capsule PO PRN (20:30)
[2023-04-28] MEDS: albuterol 2.5 MG/3 ML nebule NEB PRN (20:35)
--- NOTE | 2023-04-29 01:23 | NUR ---
Nursing Progress Note: Abimael Problem : Pt. was admitted to the unit from the Emergency Room in a wheelchair on a 5150 for DTS. Per 5150: You have stated you were going to "[employer] to purchase a razor blade and slit my wrists." Pt. scores as a high risk on the [place] Suicide Risk Assessment, however he is able to contract for safety while on the unit. This was endorsed to Dr. Garcia and Q 15min safety checks were ordered. Pt. reports a history of asthma, depression, Bipolar D/O, and substance abuse. He has an ankle monitor present on his left ankle. Pt. is currently homeless and endorses a very limited support system. Interventions : Maintained a safe and supportive environment, ensured contract for safety, provided clear and simple instructions, provided active listening and positive encouragement, encouraged participation on the unit, and maintained Q 15min safety checks. Response: Received pt. sitting on bed reading at change of shift. Pt. later observed napping. Pt. awoke for evening snack. Pt. is quiet and keeps to himself most of the time. However, in the community room, pt. socializes with male peer. He denies SI/HI/AH/VH. Pt. is medication compliant. PRNs provided this shift prazosin and clonidine. Pt. continues to have difficulty falling asleep. Plan : Pt. requires interruption of current crisis, medication adjustments, and a safe and supportive environment.
[2023-04-29 07:00] VITALS: RESP 12; O2SAT 97
[2023-04-29 07:49] VITALS: BP 130/88; PULSE 90; RESP 12; TEMP 97.8
[2023-04-29] MEDS: ziprasidone 20mg capsule PO SCH (08:11)
[2023-04-29] MEDS: lamoTRIgine 25mg tablet PO SCH (08:11)
[2023-04-29] MEDS: sertraline 25mg tablet PO SCH (08:11)
[2023-04-29 09:36] VITALS: PULSE 76; RESP 18; O2SAT 98
--- NOTE | 2023-04-29 10:47 | NUR ---
Nursing Progress Note: Problem: Pt. admitted to the unit from the Emergency Room in a wheelchair on a 5150 for DTS. Per 5150: You have stated you were going to "[employer] to purchase a razor blade and slit my wrists." Pt. scores as a high risk on the [place] Suicide Risk Assessment, however he is able to contract for safety while on the unit. This was endorsed to Dr. Garcia and Q 15min safety checks were ordered. Pt. reports a history of asthma, depression, Bipolar D/O, and substance abuse. He has an ankle monitor present on his left ankle. Pt. is currently homeless and endorses a very limited support system. Interventions: Medication administration/education/monitoring; 1:1 assessment with therapeutic communication; encouraged pt to communicate with his provider; maintained a safe and supportive environment; provided positive encouragement, encouraged participation on the unit, and maintained Q 15min safety checks. Response: Patient cooperative with medication pass. In morning assessment he reports regular BM. When asked regarding current mental status he reports, "the paranoia is not going away.' 'It keeps me awake at night." He further states, "the clonidine made me nauseas." Agreed to discuss sleep and medications with his provider. After breakfast he was observed utilizing the exercise bike with a book on his lap. Pt spends time reading in his room or sleeping in between meals. Plan : Pt. requires interruption of current crisis, medication adjustments, and a safe and supportive environment.
[2023-04-29] MEDS ORDERED: LAMO25TA5 PO (15:00)
[2023-04-29] MEDS ORDERED: ALBU18HF2 INH (15:00)
[2023-04-29] MEDS ORDERED: ZIPR60CA7 PO (15:00)
[2023-04-29] MEDS ORDERED: SERT-434 PO (15:00)
[2023-04-29] MEDS ORDERED: PRAZ1CAP5 PO (15:00)
--- NOTE | 2023-04-29 15:45 | NUR ---
Pt discharged to his parole office. Pt reports, "the medications are helping and I feel much better." Pt received his personal belongings. He denies smoking cessation or referral. He agreed to follow up as ordered.
== END 2023-04-29 15:45 | disposition home or self-care (01) | DRG 753 ==
LOC: ER 22:29 → ED HOLD 04-21 13:55 → ADULT MH 04-21 15:49
PROVIDERS: ADMIT Psychiatry & Neurology Psychiatry; ATTEND Psychiatry & Neurology Psychiatry
DX: F31.9 Bipolar disorder, unspecified (principal); R45.851 Suicidal ideations; F22 Delusional disorders; E87.6 Hypokalemia; F15.10 Other stimulant abuse, uncomplicated; F12.10 Cannabis abuse, uncomplicated; F10.10 Alcohol abuse, uncomplicated; Y90.9 Presence of alcohol in blood, level not specified; Z20.822 Contact with and (suspected) exposure to COVID-19; J45.909 Unspecified asthma, uncomplicated; F43.10 Post-traumatic stress disorder, unspecified; Z79.1 Long term (current) use of non-steroidal anti-inflammatories (NSAID); Z59.00 Homelessness unspecified; Z80.41 Family history of malignant neoplasm of ovary; Z72.0 Tobacco use; Z79.899 Other long term (current) drug therapy; Z81.8 Family history of other mental and behavioral disorders
CPT/HCPCS: 36415; 80053; 80305; 80320; 81001; 83036; 83735; 84132; 84443; 85025; 86704; 86705; 87081; 87340; 87811; 94640; 94760; 99285

== ENCOUNTER 2023-05-09 09:44 | Emergency (ER) | payer MEDICAID ==
[~2023-05-09] VITALS: Ht 175.3 cm; Wt 89.2 kg
[~2023-05-09 09:44] MED LIST changes: +ALBU18HF2 INH; -IBUP-1986 PO; +LAMO25TA5 PO; +PRAZ1CAP5 PO; +SERT-434 PO; +ZIPR60CA7 PO
[2023-05-09 09:58] VITALS: BP 138/86; PULSE 92; TEMP 96.4; O2SAT 97
[2023-05-09] MEDS ORDERED: ketorolac trometh. 30mg/ml inj. IM ONE (11:35)
[2023-05-09] MEDS ORDERED: NIRM1TAB PO (11:36)
[2023-05-09 11:42] VITALS: RESP 18
== END 2023-05-09 12:22 | disposition home or self-care (01) ==
LOC: ER 09:45
DX: U07.1 COVID-19 (principal); R09.81 Nasal congestion; R42 Dizziness and giddiness; F12.90 Cannabis use, unspecified, uncomplicated; F15.90 Other stimulant use, unspecified, uncomplicated; F11.90 Opioid use, unspecified, uncomplicated; F17.210 Nicotine dependence, cigarettes, uncomplicated; Z59.00 Homelessness unspecified; Z72.89 Other problems related to lifestyle; Z79.899 Other long term (current) drug therapy
CPT/HCPCS: 36415; 87811; 96372; 99283; J1885

== ENCOUNTER 2023-05-17 10:49 | Emergency (ER) | payer MEDICAID ==
[~2023-05-17] VITALS: Ht 175.3 cm; Wt 95.0 kg
[~2023-05-17 10:49] MED LIST changes: +NIRM1TAB PO
[2023-05-17 10:59] VITALS: BP 134/82; PULSE 82; RESP 18; TEMP 97.8; O2SAT 96
[2023-05-17] MEDS ORDERED: AMOX-117 PO (14:38)
[2023-05-17] MEDS ORDERED: IBUP-1984 PO (14:38)
== END 2023-05-17 14:56 | disposition home or self-care (01) ==
LOC: ER 10:49
DX: K04.7 Periapical abscess without sinus (principal); F17.200 Nicotine dependence, unspecified, uncomplicated; F12.10 Cannabis abuse, uncomplicated; F15.10 Other stimulant abuse, uncomplicated; Z79.899 Other long term (current) drug therapy
CPT/HCPCS: 99283

== ENCOUNTER 2023-05-30 16:45 | Emergency (ER) | payer MEDICAID ==
[~2023-05-30] VITALS: Ht 175.3 cm; Wt 92.2 kg
[2023-05-30 17:30] VITALS: BP 123/80; PULSE 60; RESP 16; TEMP 98; O2SAT 96
[2023-05-30] MEDS ORDERED: SERT-434 PO (18:36)
[2023-05-30] MEDS ORDERED: LAMO25TA94 PO (18:36)
[2023-05-30] MEDS ORDERED: ZIPR60CA2 PO (18:36)
[2023-05-30] MEDS ORDERED: PRAZ1CAP5 PO (18:36)
== END 2023-05-30 18:51 | disposition home or self-care (01) ==
LOC: ER 16:46
DX: F32.A Depression, unspecified (principal); F12.10 Cannabis abuse, uncomplicated; F15.10 Other stimulant abuse, uncomplicated; F11.10 Opioid abuse, uncomplicated; Z59.00 Homelessness unspecified
CPT/HCPCS: 99281

== ENCOUNTER 2023-09-29 19:42 | Emergency (ER) | payer MEDICAID ==
[~2023-09-29] VITALS: Ht 175.3 cm; Wt 76.1 kg
[~2023-09-29 19:42] MED LIST changes: +LAMO25TA94 PO; +ZIPR60CA2 PO
[2023-09-29] MEDS ORDERED: ketorolac trometh inj. 60 MG/2 ML VIAL IM ONE (19:50)
[2023-09-29] MEDS ORDERED: IBUP-1984 PO (21:42)
[2023-09-29 21:55] VITALS: BP 124/80; PULSE 88; RESP 16; TEMP 98; O2SAT 99
== END 2023-09-29 22:00 | disposition home or self-care (01) ==
LOC: ER 19:42
DX: S46.911A Strain of unspecified muscle, fascia and tendon at shoulder and upper arm level, right arm, initial encounter (principal); X58.XXXA Exposure to other specified factors, initial encounter; Y93.89 Activity, other specified; Y92.89 Other specified places as the place of occurrence of the external cause; Y99.8 Other external cause status
CPT/HCPCS: 73030; 96372; 99283; J1885

== ENCOUNTER 2023-09-30 02:16 | Emergency (ER) | payer MEDICAID ==
[~2023-09-30] VITALS: Ht 175.3 cm; Wt 78.2 kg
[~2023-09-30 02:16] MED LIST changes: +IBUP-1984 PO
[2023-09-30 04:46] VITALS: BP 119/89; PULSE 66; TEMP 98.3; O2SAT 97
[2023-09-30 07:19] LABS: BASOPHILS # (AUTO) 0.1 X10'3 (0-0.2); BASOPHILS % (AUTO) 1.1 % (0-1); EOSINOPHILS # (AUTO) 0.1 X10'3 (0-0.9); EOSINOPHILS % (AUTO) 0.8 % (0-6); HEMATOCRIT 44.3 % (42.0-52.0); HEMOGLOBIN 15.1 g/dl (14.0-17.9); LYMPHOCYTES # (AUTO) 2.7 X10'3 (1.1-4.8); LYMPHOCYTES % (AUTO) 35.5 % (21-51); MEAN CORPUSCULAR HEMOGLOBIN 31.1 PG (27.0-31.0); MEAN CORPUSCULAR HGB CONC 34.1 g/dL (33.0-36.5); MEAN PLATELET VOLUME 8.7 FL (7.4-10.4); MONOCYTES # (AUTO) 0.8 X10'3 (0-0.9); MONOCYTES % (AUTO) 10.1 % (2-12); NEUTROPHILS % (AUTO) 52.5 % (42-75); PLATELET COUNT 277 X10'3 (140-440); RED BLOOD COUNT 4.87 X10'6 (4.70-6.10); RED CELL DISTRIBUTION WIDTH 13.7 % (11.5-14.5); WHITE BLOOD COUNT 7.6 X10'3 (4.5-11.0)
[2023-09-30 07:25] LABS: ALANINE AMINOTRANSFERASE 24 U/L (12-78); ALBUMIN 3.7 G/DL (3.4-5.0); ALBUMIN/GLOBULIN RATIO 1.2 (1.1-1.5); ALKALINE PHOSPHATASE 74 IU/L (46-116); ANION GAP 5 (8-16); ASPARTATE AMINO TRANSFERASE 20 U/L (10-37); BILIRUBIN,TOTAL 0.7 MG/DL (0.1-1.0); BLOOD UREA NITROGEN 14 MG/DL (7-18); BUN/CREATININE RATIO 15.2 (10.0-20.0); CALCIUM 9.1 MG/DL (8.5-10.1); CHLORIDE 105 MMOL/L (99-107); CREATININE 0.92 MG/DL (0.60-1.10); ETHANOL < 10 MG/DL (<10); GLUCOSE 93 MG/DL (70-104); POTASSIUM 3.9 MMOL/L (3.5-5.1); SODIUM 141 MMOL/L (135-145); TOTAL CARBON DIOXIDE 31.5 MMOL/L (24-32); TOTAL PROTEIN 6.7 G/DL (6.4-8.2); eCRCL 105 ML/MIN; eGFR 90 ML/MIN
[2023-09-30 08:04] VITALS: RESP 16
[2023-09-30 08:22] LABS: URINE AMPHETAMINE SCREEN POSITIVE (Neg); URINE BARBITUATE SCREEN NEGATIVE (Neg); URINE BENZODIAZEPINES SCREEN NEGATIVE (Neg); URINE CANNABINOID SCREEN POSITIVE (Neg); URINE COCAINE SCREEN NEGATIVE (Neg); URINE METHADONE SCREEN NEGATIVE (Neg); URINE OPIATE SCREEN NEGATIVE (Neg); URINE PHENCYCLIDINE SCREEN NEGATIVE (Neg)
== END 2023-09-30 13:19 | disposition home or self-care (01) ==
LOC: ER 02:17
DX: U07.1 COVID-19 (principal); F12.90 Cannabis use, unspecified, uncomplicated; F15.90 Other stimulant use, unspecified, uncomplicated; F19.90 Other psychoactive substance use, unspecified, uncomplicated; Z59.00 Homelessness unspecified
CPT/HCPCS: 36415; 80053; 80305; 80320; 85025; 87811; 99283

== ENCOUNTER 2023-12-02 15:38 | Inpatient (IN) | payer MEDICAID, OTHER ==
[~2023-12-02] VITALS: Ht 175.3 cm; Wt 70.2 kg
[~2023-12-02 15:38] MED LIST changes: -IBUP-1984 PO
[2023-12-02 16:21] LABS: BILIRUBIN,URINE NEGATIVE (Neg); CLARITY,URINE CLEAR (Clear); COLOR,URINE YELLOW (Yellow); GLUCOSE, URINE NEGATIVE (Neg); KETONES,URINE NEGATIVE (Neg); LEUKOCYTE ESTERASE ,URINE NEGATIVE (Neg); NITRITES, URINE NEGATIVE (Neg); OCCULT BLOOD,URINE TRACE-INTACT (Neg); PH,URINE 6.5 (4.8-8.0); PROTEIN,URINE NEGATIVE (Neg); UROBILINOGEN,URINE 0.2 E.U/dL (0.2-1.0)
[2023-12-02 16:26] LABS: UA COLLECTION TYPE NON-SPECIFIED
[2023-12-02 16:29] LABS: BACTERIA,URINE NONE SEEN /HPF (Neg); RBC,URINE 0-2 /HPF (0-2); SPERM FEW /HPF (NEGATIVE); SQUAMOUS EPITHELIAL CELL,UR NONE SEEN /LPF (FEW); WBC,URINE 0-4 /HPF (0-4)
[2023-12-02 16:32] LABS: URINE AMPHETAMINE SCREEN POSITIVE (Neg); URINE BARBITUATE SCREEN NEGATIVE (Neg); URINE BENZODIAZEPINES SCREEN NEGATIVE (Neg); URINE CANNABINOID SCREEN POSITIVE (Neg); URINE COCAINE SCREEN NEGATIVE (Neg); URINE METHADONE SCREEN NEGATIVE (Neg); URINE OPIATE SCREEN NEGATIVE (Neg); URINE PHENCYCLIDINE SCREEN NEGATIVE (Neg)
[2023-12-02] MEDS: albuterol 2.5 MG/3 ML nebule NEB PRN (19:26)
[2023-12-02 19:29] VITALS: PULSE 84; RESP 18; O2SAT 96
[2023-12-02 19:35] VITALS: PULSE 86; RESP 16
[2023-12-02 19:42] LABS: BASOPHILS # (AUTO) 0.1 X10'3 (0-0.2); BASOPHILS % (AUTO) 0.7 % (0-1); EOSINOPHILS # (AUTO) 0.1 X10'3 (0-0.9); EOSINOPHILS % (AUTO) 1.2 % (0-6); HEMATOCRIT 36.7 % (42.0-52.0); HEMOGLOBIN 12.1 g/dl (14.0-17.9); LYMPHOCYTES # (AUTO) 2.8 X10'3 (1.1-4.8); LYMPHOCYTES % (AUTO) 21.4 % (21-51); MEAN CORPUSCULAR HEMOGLOBIN 30.1 PG (27.0-31.0); MEAN CORPUSCULAR HGB CONC 33.1 g/dL (33.0-36.5); MEAN CORPUSCULAR VOLUME 90.9 FL (78-98); MEAN PLATELET VOLUME 7.9 FL (7.4-10.4); MONOCYTES # (AUTO) 0.7 X10'3 (0-0.9); MONOCYTES % (AUTO) 5.8 % (2-12); NEUTROPHILS # (AUTO) 9.2 X10'3 (1.8-7.7); NEUTROPHILS % (AUTO) 70.9 % (42-75); PLATELET COUNT 342 X10'3 (140-440); RED BLOOD COUNT 4.04 X10'6 (4.70-6.10); RED CELL DISTRIBUTION WIDTH 14.7 % (11.5-14.5); WHITE BLOOD COUNT 12.9 X10'3 (4.5-11.0)
[2023-12-02 19:47] LABS: ACETAMINOPHEN < 2.0 UG/ML (10-30); ALBUMIN 2.6 G/DL (3.4-5.0); ANION GAP 4 (8-16); BLOOD UREA NITROGEN 8 MG/DL (7-18); CALCIUM 8.1 MG/DL (8.5-10.1); CHLORIDE 110 MMOL/L (99-107); CREATININE 0.73 MG/DL (0.60-1.10); ETHANOL < 10 MG/DL (<10); GLUCOSE 117 MG/DL (70-104); POTASSIUM 3.6 MMOL/L (3.5-5.1); SALICYLATE 0.3 MG/DL (4.0-20.0); SODIUM 144 MMOL/L (135-145); TOTAL CARBON DIOXIDE 30.2 MMOL/L (24-32); eCRCL 127 ML/MIN; eGFR > 90 ML/MIN
[2023-12-03 15:49] VITALS: PULSE 78; RESP 16; O2SAT 98
[2023-12-03 19:35] VITALS: BP 128/83; PULSE 74; RESP 17; TEMP 98.2; O2SAT 97
[2023-12-03] MEDS ORDERED: magnesium hydroxide 30ml (MOM) UD suspension PO PRN (20:15)
[2023-12-03] MEDS ORDERED: NICOTINE POLACRILEX 2 MG LOZENGE BC PRN (20:15)
[2023-12-03] MEDS ORDERED: acetaminophen 325mg tablet PO PRN (21:00)
[2023-12-03] MEDS ORDERED: loperamide 2mg capsule PO PRN (21:00)
[2023-12-03] MEDS ORDERED: ALBU18HF2 INH (21:01)
[2023-12-03] MEDS ORDERED: LAMO25TA4 PO (21:03)
[2023-12-03] MEDS ORDERED: PRAZ1CAP5 PO (21:04)
[2023-12-03] MEDS ORDERED: SERT25TA PO (21:05)
[2023-12-03] MEDS ORDERED: ZIPR60CA2 PO (21:06)
[2023-12-03] MEDS ORDERED: albuterol 2.5 MG/3 ML nebule NEB PRN (21:35)
[2023-12-03] MEDS: traZODone 50mg tablet PO SCH (21:46)
[2023-12-03] MEDS: prazosin 1mg capsule PO ONE (21:48)
[2023-12-03] MEDS: ziprasidone 20mg capsule PO ONE (21:51)
[2023-12-03 22:34] VITALS: PULSE 76; RESP 14; O2SAT 97
[2023-12-04 02:34] VITALS: RESP 17; O2SAT 97
[2023-12-04 06:53] VITALS: RESP 17; O2SAT 97
[2023-12-04 07:19] VITALS: BP 120/78; PULSE 70; RESP 16; TEMP 98.3; O2SAT 99
[2023-12-04] MEDS: lamoTRIgine 25mg tablet PO SCH (08:16)
[2023-12-04 09:12] LABS: CHOL/HDL RATIO 2.1 (0.00-4.99); CHOLESTEROL 165 MG/DL (0-200); HDL CHOLESTEROL 78 MG/DL (35-60); LDL CHOLESTEROL 68 MG/DL (50-100); TRIGLYCERIDES 50 MG/DL (20-135)
[2023-12-04] MEDS: ziprasidone 20mg capsule PO SCH (09:14)
[2023-12-04 10:13] LABS: HEMOGLOBIN A1C 5.7 % (4.5-6.2)
[2023-12-04 19:00] VITALS: RESP 18; O2SAT 98
[2023-12-04] MEDS: prazosin 1mg capsule PO SCH (20:44)
[2023-12-05 06:40] VITALS: RESP 17; O2SAT 97
[2023-12-05 07:45] LABS: BASOPHILS # (AUTO) 0.1 X10'3 (0-0.2); EOSINOPHILS # (AUTO) 0.1 X10'3 (0-0.9); EOSINOPHILS % (AUTO) 1.5 % (0-6); HEMATOCRIT 44.5 % (42.0-52.0); HEMOGLOBIN 15.2 g/dl (14.0-17.9); LYMPHOCYTES % (AUTO) 30.8 % (21-51); MEAN CORPUSCULAR HEMOGLOBIN 31.1 PG (27.0-31.0); MEAN CORPUSCULAR HGB CONC 34.1 g/dL (33.0-36.5); MEAN CORPUSCULAR VOLUME 91.2 FL (78-98); MONOCYTES # (AUTO) 0.5 X10'3 (0-0.9); MONOCYTES % (AUTO) 7.1 % (2-12); NEUTROPHILS # (AUTO) 3.8 X10'3 (1.8-7.7); NEUTROPHILS % (AUTO) 59.6 % (42-75); PLATELET COUNT 342 X10'3 (140-440); RED BLOOD COUNT 4.88 X10'6 (4.70-6.10); RED CELL DISTRIBUTION WIDTH 14.4 % (11.5-14.5); WHITE BLOOD COUNT 6.5 X10'3 (4.5-11.0)
[2023-12-05] MEDS: sertraline 50mg tablet PO SCH (08:17)
[2023-12-05 19:00] VITALS: RESP 18; O2SAT 97
[2023-12-05] MEDS: acetaminophen 325mg tablet PO PRN (21:29)
[2023-12-06 07:00] VITALS: RESP 18; O2SAT 99
[2023-12-06 19:00] VITALS: RESP 16; O2SAT 96
[2023-12-07 07:00] VITALS: RESP 18; O2SAT 100
[2023-12-07 10:23] VITALS: PULSE 78; RESP 16; O2SAT 97
[2023-12-07 19:00] VITALS: RESP 18; O2SAT 97
[2023-12-07 19:16] VITALS: BP 118/86; PULSE 83; RESP 18; TEMP 98.4; O2SAT 97
[2023-12-07 20:29] VITALS: PULSE 90; RESP 20; O2SAT 98
[2023-12-08 07:00] VITALS: RESP 16; O2SAT 100
[2023-12-08 07:30] VITALS: BP 115/81; PULSE 71; RESP 16; TEMP 98.3; O2SAT 100
[2023-12-08] MEDS: sertraline 50mg tablet PO SCH (07:42)
[2023-12-08] MEDS ORDERED: SERT-434 PO (14:57)
[2023-12-08] MEDS ORDERED: NICO-907 BC (14:57)
[2023-12-08] MEDS ORDERED: ALBU18HF2 INH (14:57)
[2023-12-08] MEDS ORDERED: PRAZ1CAP5 PO (14:57)
[2023-12-08] MEDS ORDERED: TRAZ-251 PO (14:57)
[2023-12-08] MEDS ORDERED: LAMO25TA4 PO (14:57)
== END 2023-12-08 15:51 | DRG 751 ==
LOC: ER 15:38 → ADULT MH 12-03 20:06
PROVIDERS: ADMIT Psychiatry & Neurology Psychiatry; ATTEND Psychiatry & Neurology Psychiatry
PROC: GZHZZZZ Group Psychotherapy (ICD-10-PCS; principal; 2023-12-07)
DX: F33.9 Major depressive disorder, recurrent, unspecified (principal); R45.851 Suicidal ideations; F41.9 Anxiety disorder, unspecified; F15.10 Other stimulant abuse, uncomplicated; F17.210 Nicotine dependence, cigarettes, uncomplicated; Z20.822 Contact with and (suspected) exposure to COVID-19; F11.90 Opioid use, unspecified, uncomplicated; Z79.899 Other long term (current) drug therapy; Z59.00 Homelessness unspecified; Z56.0 Unemployment, unspecified; Z91.018 Allergy to other foods
CPT/HCPCS: 36415; 71045; 80048; 80061; 80305; 80320; 80329; 81001; 83036; 85025; 87811; 94640; 94760; 99285

== ENCOUNTER 2023-12-30 03:52 | Inpatient (IN) | payer MEDICAID ==
[~2023-12-30] VITALS: Ht 175.3 cm; Wt 72.8 kg
[~2023-12-30 03:52] MED LIST changes: +LAMO25TA4 PO; -LAMO25TA5 PO; -LAMO25TA94 PO; +NICO-907 BC; -NIRM1TAB PO; -NO HOME MEDS; +TRAZ-251 PO; -ZIPR60CA2 PO; -ZIPR60CA7 PO
[2023-12-30] MEDS ORDERED: NO HOME MEDS (05:32)
[2023-12-30 05:47] LABS: ALBUMIN 3.8 G/DL (3.4-5.0); ANION GAP 9 (8-16); BLOOD UREA NITROGEN 18 MG/DL (7-18); BUN/CREATININE RATIO 18.9 (10.0-20.0); CALCIUM 8.8 MG/DL (8.5-10.1); CHLORIDE 103 MMOL/L (99-107); CREATININE 0.95 MG/DL (0.60-1.10); ETHANOL < 10 MG/DL (<10); GLUCOSE 91 MG/DL (70-104); SODIUM 141 MMOL/L (135-145); TOTAL CARBON DIOXIDE 29.1 MMOL/L (24-32); eCRCL 100 ML/MIN; eGFR 87 ML/MIN
[2023-12-30 05:50] LABS: URINE AMPHETAMINE SCREEN POSITIVE (Neg); URINE BARBITUATE SCREEN NEGATIVE (Neg); URINE BENZODIAZEPINES SCREEN NEGATIVE (Neg); URINE CANNABINOID SCREEN POSITIVE (Neg); URINE COCAINE SCREEN NEGATIVE (Neg); URINE METHADONE SCREEN NEGATIVE (Neg); URINE OPIATE SCREEN NEGATIVE (Neg); URINE PHENCYCLIDINE SCREEN NEGATIVE (Neg)
[2023-12-30 05:51] LABS: EOSINOPHILS # (AUTO) 0.1 X10'3 (0-0.9); MEAN CORPUSCULAR VOLUME 90.3 FL (78-98); MONOCYTES # (AUTO) 0.9 X10'3 (0-0.9)
[2023-12-30 05:52] LABS: BASOPHILS # (AUTO) 0.1 X10'3 (0-0.2); BASOPHILS % (AUTO) 1.2 % (0-1); EOSINOPHILS % (AUTO) 0.9 % (0-6); HEMATOCRIT 42.3 % (42.0-52.0); HEMOGLOBIN 14.6 g/dl (14.0-17.9); LYMPHOCYTES # (AUTO) 2.7 X10'3 (1.1-4.8); MEAN CORPUSCULAR HEMOGLOBIN 31.2 PG (27.0-31.0); MEAN CORPUSCULAR HGB CONC 34.5 g/dL (33.0-36.5); MEAN PLATELET VOLUME 8.3 FL (7.4-10.4); MONOCYTES % (AUTO) 7.9 % (2-12); PLATELET COUNT 336 X10'3 (140-440); RED BLOOD COUNT 4.68 X10'6 (4.70-6.10); RED CELL DISTRIBUTION WIDTH 14.2 % (11.5-14.5); WHITE BLOOD COUNT 10.8 X10'3 (4.5-11.0)
[2023-12-30] MEDS ORDERED: magnesium hydroxide 30ml (MOM) UD suspension PO PRN (15:55)
[2023-12-30] MEDS ORDERED: loperamide 2mg capsule PO PRN (15:55)
[2023-12-30] MEDS ORDERED: mag hydrox/Alum hydrox/simeth 30ml oral suspension PO PRN (15:55)
[2023-12-30 16:41] VITALS: RESP 16; O2SAT 98
[2023-12-30 17:07] VITALS: BP 111/75; PULSE 67; RESP 16; TEMP 97.2; O2SAT 98
[2023-12-30 18:50] VITALS: RESP 16; RESP 17; O2SAT 98; O2SAT 99
[2023-12-30 19:15] VITALS: BP 94/62; PULSE 78; RESP 17; TEMP 98.2; O2SAT 99
[2023-12-31 07:00] VITALS: RESP 14; O2SAT 100
[2023-12-31 07:30] VITALS: BP 107/71; PULSE 65; RESP 14; TEMP 97; O2SAT 100
[2023-12-31] MEDS: nicotine 21mg patch - 24 hr TD SCH (08:04)
[2023-12-31 11:15] LABS: CHOL/HDL RATIO 1.9 (0.00-4.99); CHOLESTEROL 121 MG/DL (0-200); HDL CHOLESTEROL 63 MG/DL (35-60); LDL CHOLESTEROL 48 MG/DL (50-100); TRIGLYCERIDES 65 MG/DL (20-135)
[2023-12-31] MEDS: acetaminophen 325mg tablet PO PRN (18:53)
[2023-12-31 19:00] VITALS: RESP 16; O2SAT 98
[2023-12-31 20:00] VITALS: BP 114/81; PULSE 96; RESP 16; TEMP 97.9; O2SAT 98
[2023-12-31] MEDS: prazosin 1mg capsule PO SCH (20:42)
[2023-12-31] MEDS: traZODone 50mg tablet PO PRN (20:46)
[2024-01-01 07:00] VITALS: RESP 18; O2SAT 100
[2024-01-01] MEDS: sertraline 50mg tablet PO SCH (07:29)
[2024-01-01 07:30] VITALS: BP 108/64; PULSE 85; RESP 18; TEMP 97.7; O2SAT 100
[2024-01-01] MEDS: NICOTINE POLACRILEX 2 MG LOZENGE BC PRN (18:41)
[2024-01-01 19:30] VITALS: BP 120/82; PULSE 91; RESP 16; TEMP 98.4; O2SAT 96
[2024-01-02 08:00] VITALS: BP 109/67; PULSE 82; RESP 16; TEMP 97.8; O2SAT 100
[2024-01-02 19:30] VITALS: BP 123/75; PULSE 83; RESP 16; TEMP 98.4; O2SAT 98
[2024-01-03 07:30] VITALS: BP 111/74; PULSE 81; RESP 16; TEMP 96.7; O2SAT 98
[2024-01-03 19:00] VITALS: BP 135/90; PULSE 90; RESP 16; TEMP 98.1; O2SAT 98
[2024-01-03] MEDS: acetaminophen 325mg tablet PO PRN (21:03)
[2024-01-04 07:00] VITALS: RESP 14; O2SAT 98
[2024-01-04 07:30] VITALS: BP 113/60; PULSE 74; RESP 14; TEMP 97.5; O2SAT 98
[2024-01-04 19:31] VITALS: BP 111/75; PULSE 78; RESP 16; TEMP 98; O2SAT 97
[2024-01-05 07:30] VITALS: RESP 12; O2SAT 99
[2024-01-05 08:00] VITALS: BP 106/60; PULSE 80; RESP 12; TEMP 98.1; O2SAT 99
[2024-01-05 20:09] VITALS: BP 121/71; PULSE 79; RESP 12; TEMP 98.9; O2SAT 98
[2024-01-06 07:16] VITALS: RESP 16; O2SAT 98
[2024-01-06 08:00] VITALS: BP 94/67; PULSE 75; RESP 16; TEMP 97.7; O2SAT 98
[2024-01-06 19:47] VITALS: RESP 18; O2SAT 99
[2024-01-06 20:46] VITALS: BP 121/88; PULSE 115; RESP 18; TEMP 97.8; O2SAT 99
[2024-01-06] MEDS: clotrimazole topical cream 15gm tube TP SCH (21:01)
[2024-01-07 07:00] VITALS: RESP 16; O2SAT 98
[2024-01-07 08:00] VITALS: BP 109/54; PULSE 68; RESP 16; TEMP 97.3; O2SAT 98
[2024-01-07 19:00] VITALS: RESP 16; O2SAT 97
[2024-01-07 20:00] VITALS: BP 116/77; PULSE 84; RESP 16; TEMP 97.7; O2SAT 97
[2024-01-08 08:00] VITALS: BP 113/65; PULSE 87; RESP 12; TEMP 97.5; O2SAT 96
[2024-01-08 08:12] VITALS: RESP 12; O2SAT 96
[2024-01-08] MEDS ORDERED: NICO-687 TD (12:00)
[2024-01-08] MEDS ORDERED: CLOT15CR35 TP (12:00)
[2024-01-08] MEDS ORDERED: TRAZ-251 PO (12:00)
== END 2024-01-08 14:13 | disposition home or self-care (01) | DRG 751 ==
LOC: ER 03:53 → ED HOLD 14:26 → ADULT MH 15:36
PROVIDERS: ADMIT Psychiatry & Neurology Psychiatry; ATTEND Psychiatry & Neurology Psychiatry
PROC: GZHZZZZ Group Psychotherapy (ICD-10-PCS; principal; 2024-01-01)
PROC: GZ51ZZZ Individual Psychotherapy, Behavioral (ICD-10-PCS; 2024-01-01)
DX: F33.2 Major depressive disorder, recurrent severe without psychotic features (principal); R45.851 Suicidal ideations; F17.210 Nicotine dependence, cigarettes, uncomplicated; F43.12 Post-traumatic stress disorder, chronic; J45.909 Unspecified asthma, uncomplicated; T43.96XA Underdosing of unspecified psychotropic drug, initial encounter; Z56.0 Unemployment, unspecified; Z80.41 Family history of malignant neoplasm of ovary; Z91.018 Allergy to other foods; Z59.00 Homelessness unspecified; Z79.899 Other long term (current) drug therapy; Z91.51 Personal history of suicidal behavior; Z65.3 Problems related to other legal circumstances; Y92.89 Other specified places as the place of occurrence of the external cause
CPT/HCPCS: 36415; 80048; 80061; 80305; 80320; 85025; 87081; 99285

== ENCOUNTER 2024-01-21 00:37 | Emergency (ER) | payer MEDICAID ==
[~2024-01-21 00:37] MED LIST changes: -ALBU18HF2 INH; +CLOT15CR35 TP; -LAMO25TA4 PO; +NICO-687 TD; +NO HOME MEDS; -PRAZ1CAP5 PO
== END 2024-01-21 01:29 | disposition left against medical advice (07) ==
LOC: ER 00:37
DX: M25.511 Pain in right shoulder (principal); Z53.21 Procedure and treatment not carried out due to patient leaving prior to being seen by health care provider

== ENCOUNTER 2024-01-22 01:39 | Emergency (ER) | payer MEDICAID ==
[~2024-01-22] VITALS: Ht 175.3 cm; Wt 75.0 kg
[2024-01-22 02:02] VITALS: BP 119/77; PULSE 96; RESP 18; TEMP 98; O2SAT 97
== END 2024-01-22 04:56 | disposition left against medical advice (07) ==
LOC: ER 01:39
DX: R44.2 Other hallucinations (principal); Z53.21 Procedure and treatment not carried out due to patient leaving prior to being seen by health care provider

== ENCOUNTER 2024-04-11 15:16 | Emergency (ER) | payer MEDICAID ==
[~2024-04-11] VITALS: Ht 175.3 cm; Wt 81.3 kg
[2024-04-11 15:46] LABS: BASOPHILS # (AUTO) 0.1 X10'3 (0-0.2); BASOPHILS % (AUTO) 1.3 % (0-1); EOSINOPHILS # (AUTO) 0.1 X10'3 (0-0.9); HEMOGLOBIN 12.8 g/dl (14.0-17.9); LYMPHOCYTES # (AUTO) 1.6 X10'3 (1.1-4.8); LYMPHOCYTES % (AUTO) 21.5 % (21-51); MEAN CORPUSCULAR HGB CONC 33.7 g/dL (33.0-36.5); MEAN PLATELET VOLUME 8.2 FL (7.4-10.4); MONOCYTES # (AUTO) 0.5 X10'3 (0-0.9); MONOCYTES % (AUTO) 6.9 % (2-12); NEUTROPHILS # (AUTO) 5.3 X10'3 (1.8-7.7); NEUTROPHILS % (AUTO) 69.3 % (42-75); PLATELET COUNT 280 X10'3 (140-440); RED BLOOD COUNT 4.13 X10'6 (4.70-6.10); RED CELL DISTRIBUTION WIDTH 13.4 % (11.5-14.5); WHITE BLOOD COUNT 7.6 X10'3 (4.5-11.0)
[2024-04-11 15:56] LABS: ALBUMIN 3.4 G/DL (3.4-5.0); ANION GAP 3 (8-16); BLOOD UREA NITROGEN 10 MG/DL (7-18); BUN/CREATININE RATIO 11.8 (10.0-20.0); CALCIUM 8.6 MG/DL (8.5-10.1); CHLORIDE 107 MMOL/L (99-107); CREATININE 0.85 MG/DL (0.60-1.10); GLUCOSE 104 MG/DL (70-104); POTASSIUM 3.8 MMOL/L (3.5-5.1); SODIUM 141 MMOL/L (135-145); TOTAL CARBON DIOXIDE 30.9 MMOL/L (24-32); eCRCL 113 ML/MIN; eGFR > 90 ML/MIN
[2024-04-11 16:00] LABS: ETHANOL < 10 MG/DL (<10)
[2024-04-11 16:49] LABS: URINE AMPHETAMINE SCREEN POSITIVE (Neg); URINE BARBITUATE SCREEN NEGATIVE (Neg); URINE BENZODIAZEPINES SCREEN NEGATIVE (Neg); URINE CANNABINOID SCREEN POSITIVE (Neg); URINE COCAINE SCREEN NEGATIVE (Neg); URINE METHADONE SCREEN NEGATIVE (Neg); URINE OPIATE SCREEN NEGATIVE (Neg); URINE PHENCYCLIDINE SCREEN NEGATIVE (Neg)
[2024-04-12 06:16] VITALS: BP 106/73; PULSE 56; RESP 18; TEMP 96.7; O2SAT 99
[2024-04-12 11:12] LABS: BILIRUBIN,URINE NEGATIVE (Neg); CLARITY,URINE TURBID (Clear); COLOR,URINE STRAW (Yellow); GLUCOSE, URINE NEGATIVE (Neg); KETONES,URINE NEGATIVE (Neg); LEUKOCYTE ESTERASE ,URINE NEGATIVE (Neg); NITRITES, URINE NEGATIVE (Neg); OCCULT BLOOD,URINE NEGATIVE (Neg); PROTEIN,URINE NEGATIVE (Neg); UROBILINOGEN,URINE 0.2 E.U/dL (0.2-1.0)
[2024-04-12 11:27] LABS: UA COLLECTION TYPE FOLEY CATH
[2024-04-12 11:30] LABS: AMORPHOUS URATES 4+
[2024-04-12 11:31] LABS: BACTERIA,URINE FEW /HPF (Neg); CAL OXALATE CRYSTALS 4+ /HPF (NEGATIVE); SQUAMOUS EPITHELIAL CELL,UR FEW /LPF (FEW)
[2024-04-12 11:32] LABS: COARSE GRANULAR CAST 0-3 /LPF (NEGATIVE); RBC,URINE 0-2 /HPF (0-2); WBC,URINE 0-4 /HPF (0-4)
[2024-04-12 14:35] LABS: THYROID STIMULATING HORMONE 1.88 ulU/ml (0.34-4.50)
== END 2024-04-12 14:15 | disposition home or self-care (01) ==
LOC: ER 15:17
DX: R45.851 Suicidal ideations (principal); Z20.822 Contact with and (suspected) exposure to COVID-19; F12.90 Cannabis use, unspecified, uncomplicated; F15.90 Other stimulant use, unspecified, uncomplicated; F11.90 Opioid use, unspecified, uncomplicated; Z60.2 Problems related to living alone; Z59.00 Homelessness unspecified; Z79.899 Other long term (current) drug therapy
CPT/HCPCS: 36415; 80048; 80305; 80320; 81001; 84443; 85025; 87088; 87811; 99285

== ENCOUNTER 2024-09-12 03:24 | Inpatient (IN) | payer MEDICAID ==
[~2024-09-12] VITALS: Ht 175.3 cm; Wt 82.5 kg
[~2024-09-12 03:24] MED LIST changes: -CLOT15CR35 TP; -NICO-687 TD; -NICO-907 BC; -SERT-434 PO; -TRAZ-251 PO
[2024-09-12 04:27] LABS: BASOPHILS # (AUTO) 0.1 X10'3 (0-0.2); BASOPHILS % (AUTO) 1.4 % (0-1); EOSINOPHILS # (AUTO) 0.1 X10'3 (0-0.9); EOSINOPHILS % (AUTO) 1.6 % (0-6); HEMOGLOBIN 13.6 g/dl (14.0-17.9); LYMPHOCYTES # (AUTO) 1.9 X10'3 (1.1-4.8); LYMPHOCYTES % (AUTO) 29.3 % (21-51); MEAN CORPUSCULAR HEMOGLOBIN 30.8 PG (27.0-31.0); MEAN CORPUSCULAR HGB CONC 34.1 g/dL (33.0-36.5); MEAN CORPUSCULAR VOLUME 90.2 FL (78-98); MEAN PLATELET VOLUME 8.2 FL (7.4-10.4); MONOCYTES # (AUTO) 0.6 X10'3 (0-0.9); NEUTROPHILS # (AUTO) 3.8 X10'3 (1.8-7.7); NEUTROPHILS % (AUTO) 58.7 % (42-75); PLATELET COUNT 302 X10'3 (140-440); RED BLOOD COUNT 4.43 X10'6 (4.70-6.10); RED CELL DISTRIBUTION WIDTH 13.5 % (11.5-14.5); WHITE BLOOD COUNT 6.5 X10'3 (4.5-11.0)
[2024-09-12 04:51] LABS: ALBUMIN 3.6 G/DL (3.4-5.0); ANION GAP 7 (8-16); BLOOD UREA NITROGEN 12 MG/DL (7-18); BUN/CREATININE RATIO 16.9 (10.0-20.0); CALCIUM 8.7 MG/DL (8.5-10.1); CHLORIDE 106 MMOL/L (99-107); CREATININE 0.71 MG/DL (0.60-1.10); GLUCOSE 92 MG/DL (70-104); POTASSIUM 3.4 MMOL/L (3.5-5.1); SODIUM 142 MMOL/L (135-145); THYROID STIMULATING HORMONE 1.53 ulU/ml (0.34-4.50); TOTAL CARBON DIOXIDE 28.8 MMOL/L (24-32); eCRCL 134 ML/MIN; eGFR > 90 ML/MIN
[2024-09-12 05:06] LABS: ETHANOL < 10 MG/DL (<10)
[2024-09-12 08:54] LABS: BILIRUBIN,URINE NEGATIVE (Neg); CLARITY,URINE CLEAR (Clear); COLOR,URINE YELLOW (Yellow); GLUCOSE, URINE NEGATIVE (Neg); KETONES,URINE TRACE mg/dl (Neg); LEUKOCYTE ESTERASE ,URINE NEGATIVE (Neg); NITRITES, URINE NEGATIVE (Neg); OCCULT BLOOD,URINE NEGATIVE (Neg); PH,URINE 6.5 (4.8-8.0); PROTEIN,URINE NEGATIVE (Neg)
[2024-09-12 08:59] LABS: UA COLLECTION TYPE CLN CATCH MIDSTREAM
[2024-09-12 09:11] LABS: URINE AMPHETAMINE SCREEN POSITIVE (Neg); URINE BARBITUATE SCREEN NEGATIVE (Neg); URINE BENZODIAZEPINES SCREEN NEGATIVE (Neg); URINE CANNABINOID SCREEN POSITIVE (Neg); URINE COCAINE SCREEN NEGATIVE (Neg); URINE METHADONE SCREEN NEGATIVE (Neg); URINE OPIATE SCREEN NEGATIVE (Neg); URINE PHENCYCLIDINE SCREEN NEGATIVE (Neg)
[2024-09-12 15:32] VITALS: BP 115/74; PULSE 90; RESP 16; TEMP 98.2; O2SAT 98
[2024-09-12] MEDS ORDERED: acetaminophen 325mg tablet PO PRN ×2 (16:25)
[2024-09-12] MEDS ORDERED: mag hydrox/Alum hydrox/simeth 30ml oral suspension PO PRN (16:25)
[2024-09-12] MEDS ORDERED: loperamide 2mg capsule PO PRN (16:25)
[2024-09-12] MEDS ORDERED: magnesium hydroxide 30ml (MOM) UD suspension PO PRN (16:25)
[2024-09-12 19:00] VITALS: RESP 14; O2SAT 100
[2024-09-12 20:00] VITALS: BP 95/56; PULSE 72; RESP 14; TEMP 97.6; O2SAT 100
[2024-09-12] MEDS ORDERED: potassium Cl 40MEQ/1/2NS 520ml 520 ML IV PRN ×2 (20:00→23:35)
[2024-09-12] MEDS ORDERED: potassium Cl 20 mEq SR tablet PO PRN ×3 (20:00→23:35)
[2024-09-12] MEDS ORDERED: magnesium sulf-water 2g/50mL 50 ML IV PRN ×2 (20:00→23:35)
[2024-09-12] MEDS: K and/or MAG REPLACEMENT MC SCH (20:00)
[2024-09-12] MEDS ORDERED: magnesium Cl slow-release 64mg tablet PO PRN ×2 (20:00→23:35)
[2024-09-12] MEDS ORDERED: magnesium sulf-water 4G/100mL 100 ML IV PRN ×2 (20:00→23:35)
[2024-09-12] MEDS: potassium Cl 20 mEq SR tablet PO PRN (20:41)
[2024-09-13 07:15] VITALS: BP 104/62; PULSE 56; RESP 12; TEMP 97.8; O2SAT 98
[2024-09-13] MEDS: nicotine 14mg patch - 24hr TD SCH (09:13)
[2024-09-13 09:18] VITALS: RESP 14; O2SAT 96
[2024-09-13] MEDS: NICOTINE POLACRILEX 2 MG LOZENGE BC PRN (09:24)
[2024-09-13 11:23] LABS: MAGNESIUM 2.5 MG/DL (1.5-2.4); POTASSIUM 3.8 MMOL/L (3.5-5.1); THYROID STIMULATING HORMONE 0.99 ulU/ml (0.34-4.50)
[2024-09-13] MEDS: K and/or MAG REPLACEMENT MC SCH (11:33)
[2024-09-13 13:02] LABS: HEMOGLOBIN A1C 5.4 % (4.5-6.2)
[2024-09-13 19:00] VITALS: RESP 16; O2SAT 98
[2024-09-13 20:00] VITALS: BP 116/79; PULSE 87; RESP 16; TEMP 97.9; O2SAT 98
[2024-09-13] MEDS ORDERED: buPROPion 100mg tablet PO SCH (20:00)
[2024-09-13] MEDS: olanzapine 10mg tablet PO SCH (20:16)
[2024-09-14 01:23] VITALS: BP 116/79; PULSE 87; RESP 16; TEMP 97.9; O2SAT 98
[2024-09-14 07:43] VITALS: BP 96/63; PULSE 62; RESP 16; TEMP 97.8; O2SAT 100
[2024-09-14 07:49] VITALS: RESP 16; O2SAT 100
[2024-09-14 07:52] LABS: BASOPHILS # (AUTO) 0.1 X10'3 (0-0.2); BASOPHILS % (AUTO) 1.9 % (0-1); EOSINOPHILS # (AUTO) 0.1 X10'3 (0-0.9); EOSINOPHILS % (AUTO) 2.3 % (0-6); HEMATOCRIT 40.2 % (42.0-52.0); HEMOGLOBIN 13.8 g/dl (14.0-17.9); LYMPHOCYTES # (AUTO) 2.2 X10'3 (1.1-4.8); LYMPHOCYTES % (AUTO) 37.7 % (21-51); MEAN CORPUSCULAR HEMOGLOBIN 31.1 PG (27.0-31.0); MEAN CORPUSCULAR HGB CONC 34.4 g/dL (33.0-36.5); MEAN CORPUSCULAR VOLUME 90.4 FL (78-98); MEAN PLATELET VOLUME 8.1 FL (7.4-10.4); MONOCYTES # (AUTO) 0.5 X10'3 (0-0.9); MONOCYTES % (AUTO) 8.7 % (2-12); NEUTROPHILS # (AUTO) 2.8 X10'3 (1.8-7.7); NEUTROPHILS % (AUTO) 49.4 % (42-75); PLATELET COUNT 334 X10'3 (140-440); RED BLOOD COUNT 4.45 X10'6 (4.70-6.10); RED CELL DISTRIBUTION WIDTH 13.3 % (11.5-14.5); WHITE BLOOD COUNT 5.7 X10'3 (4.5-11.0)
[2024-09-14 08:32] LABS: ALANINE AMINOTRANSFERASE 22 U/L (12-78); ALBUMIN 3.1 G/DL (3.4-5.0); ALBUMIN/GLOBULIN RATIO 1.1 (1.1-1.5); ALKALINE PHOSPHATASE 73 IU/L (46-116); ANION GAP 9 (8-16); ASPARTATE AMINO TRANSFERASE 16 U/L (10-37); BILIRUBIN,TOTAL 0.3 MG/DL (0.1-1.0); BLOOD UREA NITROGEN 10 MG/DL (7-18); BUN/CREATININE RATIO 13.2 (10.0-20.0); CALCIUM 8.5 MG/DL (8.5-10.1); CHLORIDE 111 MMOL/L (99-107); CREATININE 0.76 MG/DL (0.60-1.10); GLUCOSE 100 MG/DL (70-104); MAGNESIUM 2.3 MG/DL (1.5-2.4); POTASSIUM 3.9 MMOL/L (3.5-5.1); SODIUM 146 MMOL/L (135-145); TOTAL CARBON DIOXIDE 26.4 MMOL/L (24-32); eCRCL 125 ML/MIN; eGFR > 90 ML/MIN
[2024-09-14 08:34] LABS: THYROID STIMULATING HORMONE 1.46 ulU/ml (0.34-4.50)
[2024-09-14] MEDS: atomoxetine 40 MG capsule PO SCH (08:41)
[2024-09-14 19:30] VITALS: RESP 14; O2SAT 94
[2024-09-14 20:00] VITALS: BP 97/56; PULSE 64; RESP 14; TEMP 97.9; O2SAT 94
[2024-09-15 07:30] VITALS: BP 98/71; PULSE 65; RESP 16; TEMP 97.1; O2SAT 100
[2024-09-15 07:59] VITALS: RESP 16; O2SAT 100
[2024-09-15] MEDS: FLUoxetine 20mg capsule PO SCH (12:40)
[2024-09-15 19:18] VITALS: RESP 15; O2SAT 98
[2024-09-15 19:53] VITALS: BP 99/74; PULSE 71; RESP 15; TEMP 98.3; O2SAT 98
[2024-09-16 07:00] VITALS: RESP 16; O2SAT 97
[2024-09-16 08:00] VITALS: BP 113/74; PULSE 72; RESP 16; TEMP 97.9; O2SAT 97
[2024-09-16 19:17] VITALS: RESP 20; O2SAT 95
[2024-09-16 19:27] VITALS: BP 106/70; PULSE 85; RESP 20; TEMP 97.9; O2SAT 95
[2024-09-17 08:00] VITALS: BP 98/61; PULSE 52; RESP 14; TEMP 97.8; O2SAT 100
[2024-09-17 19:00] VITALS: RESP 20; O2SAT 98
[2024-09-17 20:00] VITALS: BP 118/72; PULSE 85; RESP 20; TEMP 98; O2SAT 98
[2024-09-18 07:30] VITALS: BP 96/66; PULSE 72; RESP 12; TEMP 98.2; O2SAT 97
[2024-09-18 19:00] VITALS: RESP 22; O2SAT 96
[2024-09-18 19:50] VITALS: BP 117/83; PULSE 86; RESP 22; TEMP 98.2; O2SAT 96
[2024-09-19 07:30] VITALS: BP 117/73; PULSE 72; RESP 16; TEMP 97.8; O2SAT 98
[2024-09-19 19:00] VITALS: RESP 18; O2SAT 97
[2024-09-19 20:00] VITALS: BP 126/79; PULSE 85; RESP 18; TEMP 97.8; O2SAT 97
[2024-09-20 07:00] VITALS: BP 93/52; PULSE 65; RESP 16; TEMP 98; O2SAT 95
[2024-09-20] MEDS ORDERED: FLUO-167 PO (07:43)
[2024-09-20] MEDS ORDERED: OLAN10TA73 PO (07:43)
[2024-09-20] MEDS ORDERED: ATOM40CA PO (07:43)
== END 2024-09-20 12:15 | disposition home or self-care (01) | DRG 753 ==
LOC: ER 03:25 → ED HOLD 11:30 → ADULT MH 15:35
PROVIDERS: ADMIT Psychiatry & Neurology Psychiatry; ATTEND Psychiatry & Neurology Psychiatry
PROC: GZHZZZZ Group Psychotherapy (ICD-10-PCS; principal; 2024-09-13)
PROC: GZ51ZZZ Individual Psychotherapy, Behavioral (ICD-10-PCS; 2024-09-13)
DX: F31.9 Bipolar disorder, unspecified (principal); R45.851 Suicidal ideations; F90.9 Attention-deficit hyperactivity disorder, unspecified type; Z20.822 Contact with and (suspected) exposure to COVID-19; F15.90 Other stimulant use, unspecified, uncomplicated; E87.6 Hypokalemia; Z79.899 Other long term (current) drug therapy; Z59.00 Homelessness unspecified; Z87.891 Personal history of nicotine dependence; Z91.199 Patient's noncompliance with other medical treatment and regimen due to unspecified reason
CPT/HCPCS: 36415; 80048; 80053; 80305; 80320; 81003; 83036; 83735; 84132; 84443; 85025; 87081; 87811; 99285

== ENCOUNTER 2024-12-18 08:24 | Emergency (ER) | payer MEDICAID ==
[~2024-12-18] VITALS: Ht 175.3 cm; Wt 80.2 kg
[~2024-12-18 08:24] MED LIST changes: +ARIP10TA87 PO; +ESCI-8 PO; -NO HOME MEDS
[2024-12-18] MEDS ORDERED: LOPE2CAP PO (09:31)
[2024-12-18] MEDS: loperamide 2mg capsule PO STA (10:07)
[2024-12-18 10:17] VITALS: TEMP 97.7
== END 2024-12-18 10:15 | disposition home or self-care (01) ==
LOC: ER 08:24
DX: R19.7 Diarrhea, unspecified (principal); F12.90 Cannabis use, unspecified, uncomplicated; F15.90 Other stimulant use, unspecified, uncomplicated; F11.90 Opioid use, unspecified, uncomplicated
CPT/HCPCS: 99282